=== PATIENT | male | born 1980 ===

== ENCOUNTER 2019-09-08 23:57 | Inpatient (IN) | payer OTHER ==
[2019-09-09] MEDS ORDERED: SODIUM CHLORIDE 0.9% 1000 ML 1,000 ML IV ONE ×4 (00:35→08:54)
--- NOTE | 2019-09-09 00:37 | Emergency Department Report ---
ED General Adult HPI - General Chief complaint: Urogenital-Male Stated complaint: FREQUENT URINATION/DRY MOUTH/BLURRED VISION Time Seen by Provider: 09/09/19 00:32 Source: patient Mode of arrival: Ambulatory Limitations: No Limitations - History of Present Illness Initial comments: Patient is a 39-year-old male that presents to emergency room with complaints of weakness, increased thirst, frequent urination, fatigue and blurry vision. Patient states his symptoms started 2 weeks ago and worsening. Patient states she does not have a history of diabetes however he states that his sugars greater than 500 triage here. Patient states only past medical history of hypertension. Patient is not taking his blood pressure medications. Patient states a long time since he is went to her primary care. She denies chest pain shortness of breath. Patient denies fever and chills. Patient denies headache -: Sudden Consistency: constant Improves with: rest Worsens with: movement Associated Symptoms: malaise, weakness. denies: headaches, loss of appetite, nausea/vomiting, rash, seizure, shortness of breath, syncope Treatments Prior to Arrival: none - Related Data Home Medications Medication Instructions Recorded Confirmed Last Taken Lisinopril/Hydrochlorothiazide 10 - 12.5 mg PO QDAY 09/09/19 09/09/19 Unknown [Zestoretic 10-12.5 mg Tablet] amLODIPine [Norvasc] 10 mg PO DAILY 09/09/19 09/09/19 Unknown Allergies Allergy/AdvReac Type Severity Reaction Status Date / Time No Known Allergies Allergy Verified 09/09/19 02:41 ED Review of Systems ROS: Stated complaint: FREQUENT URINATION/DRY MOUTH/BLURRED VISION Other details as noted in HPI Constitutional: malaise, weakness. denies: chills, fever Eyes: denies: eye pain, eye discharge, vision change ENT: denies: ear pain, throat pain Respiratory: denies: cough, shortness of breath, wheezing Cardiovascular: denies: chest pain, palpitations Endocrine: no symptoms reported, increased thirst, increased urine Gastrointestinal: denies: abdominal pain, nausea, diarrhea Genitourinary: frequency. denies: dysuria Musculoskeletal: denies: back pain, joint swelling, arthralgia Skin: denies: rash, lesions Neurological: denies: headache, weakness, paresthesias Psychiatric: denies: anxiety, depression Hematological/Lymphatic: denies: easy bleeding, easy bruising ED Past Medical Hx - Past Medical History Previous Medical History?: Yes Hx Hypertension: Yes - Surgical History Past Surgical History?: Yes Additional Surgical History: Right eye - Family History Family history: no significant - Social History Smoking Status: Never Smoker Substance Use Type: None - Medications Home Medications: Home Medications Medication Instructions Recorded Confirmed Last Taken Type Lisinopril/Hydrochlorothiazide 10 - 12.5 mg PO QDAY 09/09/19 09/09/19 Unknown History [Zestoretic 10-12.5 mg Tablet] amLODIPine [Norvasc] 10 mg PO DAILY 09/09/19 09/09/19 Unknown History ED Physical Exam - General Limitations: No Limitations General appearance: alert, in no apparent distress - Head Head exam: Present: atraumatic, normocephalic - Eye Eye exam: Present: normal appearance - ENT ENT exam: Present: mucous membranes dry - Neck Neck exam: Present: normal inspection, full ROM. Absent: tenderness, meningismus - Respiratory Respiratory exam: Present: normal lung sounds bilaterally. Absent: respiratory distress, wheezes, rales - Cardiovascular Cardiovascular Exam: Present: regular rate, normal rhythm. Absent: systolic murmur, diastolic murmur, rubs, gallop - GI/Abdominal GI/Abdominal exam: Present: soft, normal bowel sounds. Absent: distended, tenderness, guarding - Rectal Rectal exam: Present: deferred - Extremities Exam Extremities exam: Present: normal inspection - Back Exam Back exam: Present: normal inspection - Neurological Exam Neurological exam: Present: alert, oriented X3 - Psychiatric Psychiatric exam: Present: normal affect, normal mood - Skin Skin exam: Present: warm, dry, intact, normal color. Absent: rash ED Course Vital Signs 09/09/19 09/09/19 09/09/19 00:02 00:35 01:30 Temperature 97.7 F 97.6 F Pulse Rate 109 H 111 H 96 H Respiratory 18 19 16 Rate Blood Pressure 188/123 162/96 Blood Pressure 162/110 [Left] O2 Sat by Pulse 95 95 96 Oximetry 09/09/19 09/09/19 02:00 03:45 Temperature Pulse Rate 99 H 101 H Respiratory 18 24 Rate Blood Pressure 127/78 Blood Pressure 145/99 [Left] O2 Sat by Pulse 96 94 Oximetry - Reevaluation(s) Reevaluation #1: I discussed all results with patient. Discussed plan of care patient. Patient agrees with plan of care and admission. Patient will be admitted to the hospitalist service. 09/09/19 02:15 Reevaluation #2: Patient will be given calcium, insulin for elevated potassium. 09/09/19 02:36 Reevaluation #3: Patiently placed on insulin drip. Hospitalist made aware of sugar level and potassium. 09/09/19 03:02 - Consultations Consultation #1: Hospitalist consulted for admission. Hospitalist to admit patient. 09/09/19 02:15 ED Medical Decision Making - Lab Data Result diagrams: 09/09/19 00:50 09/09/19 04:12 - EKG Data -: EKG Interpreted by Me EKG shows normal: sinus rhythm, axis, intervals, QRS complexes, ST-T waves Rate: tachycardia - Medical Decision Making Patient is a 39-year-old mellitus emergency room with complaints of polyuria polydipsia and blurred vision and fatigue and weakness. Patient's sugar also found to be elevated. Patient's labs done and consistent with acute renal failure and hyponatremia. She given fluids in the ER. Patient given insulin ER. Patient admitted to the hospitalist service. Patient also found to have glucose on his urine. - Differential Diagnosis DKA, HHS, hyperglycemia. Critical Care Time: Yes Critical care time in (mins) excluding proc time.: 35 Critical care attestation.: If time is entered above; I have spent that time in minutes in the direct care of this critically ill patient, excluding procedure time. Critical Care Time: 35 minutes ED Disposition Clinical Impression: Diabetic hyperosmolar non-ketotic state, Hyponatremia, Hyperglycemia, Polyuria, Polydipsia, Hyperkalemia Renal failure Qualifiers: Renal failure chronicity: acute Acute renal failure type: unspecified Qualified Code(s): N17.9 - Acute kidney failure, unspecified Disposition: 09 OP ADMIT IP TO THIS HOSP Is pt being admited?: Yes Does the pt Need Aspirin: No Condition: Critical Time of Disposition: 02:11
[2019-09-09 01:22] LABS: Basophils % (Auto) 0.4 % (0.0-1.8); Eosinophils % (Auto) 0.2 % (0.0-4.3); Lymphocytes # (Auto) 1.1 K/mm3 (1.2-5.4); Lymphocytes % (Auto) 16.2 % (13.4-35.0); Mean Corpuscular HGB Conc 30 % (32-34); Mean Corpuscular Volume 88 fl (84-94); Monocytes # (Auto) 0.7 K/mm3 (0.0-0.8); Monocytes % (Auto) 10.3 % (0.0-7.3); Platelet Count 353 K/mm3 (140-440); Red Blood Count 6.57 M/mm3 (3.65-5.03); Red Cell Distribution Width 16.2 % (13.2-15.2)
[2019-09-09 01:26] LABS: Hematocrit 58.1 % (35.5-45.6); Hemoglobin 17.2 gm/dl (11.8-15.2)
[2019-09-09 01:32] LABS: Bilirubin,Urine NEG (Negative); Blood,Urine NEG (Negative); Color,Urine Colorless (Yellow); RBC,Urine < 1.0 /HPF (0.0-6.0); Urobilinogen,Urine < 2.0 mg/dL (<2.0)
[2019-09-09 01:35] LABS: WBC,Urine < 1.0 /HPF (0.0-6.0)
[2019-09-09 01:40] LABS: Albumin 4.2 g/dL (3.9-5); Calcium 9.9 mg/dL (8.4-10.2)
[2019-09-09] MEDS ORDERED: INSULIN REGULAR, HUMAN 100 UNITS/1 ML IV ONE (02:13)
[2019-09-09] MEDS ORDERED: hydrALAZINE 20 MG/1 ML INJ IV PRN (02:23)
[2019-09-09] MEDS ORDERED: CALCIUM CHLORIDE 1,000 MG/10 ML SDV IVP ONE (02:35)
[2019-09-09] MEDS ORDERED: CALCIUM CHLORIDE 1,000 MG in SODIUM CHLORIDE 0.9% 100 ML IV ONE (02:50)
[2019-09-09] MEDS ORDERED: SODIUM CHLORIDE 0.45% 1000 ML 1,000 ML IV SCH (03:00)
[2019-09-09] MEDS ORDERED: ONDANSETRON 4 MG/2 ML INJ IV PRN (03:11)
[2019-09-09] MEDS ORDERED: ACETAMINOPHEN 325 MG TAB PO PRN (03:11)
--- NOTE | 2019-09-09 03:16 | History and Physical Report ---
History of Present Illness Date of examination: 09/09/19 History of present illness: 39-year-old man with a history of hypertension, "borderline kidney problems" comes emergency room with complaints frequent urination, decreased appetite, drinking alot, generalized weakness, dry mouth, blurred vision for two weeks. Admits to weight loss of 15 pounds, unclear off timeframe Review of systems Constitutional: no weight loss, chills, fever Ears, eyes, nose, mouth and throat: no nasal congestion, no nasal discharge, no sinus pressure, no vision change, no red eye. Neck: No neck pain or rigidity. Cardiovascular: no chest pain, palpitations Respiratory: no cough, shortness of breath Gastrointestinal: no abdominal pain hematochezia Genitourinary : no frequency , no hematuria Musculoskeletal: no joint swelling or muscle ache Integumentary: no rash, no pruritis Neurological: no parathesias, no numbness, no focal weakness Endocrine: no cold or heat intolerance Hematologic/Lymphatic: no easy bruising, no easy bleeding, no gland swelling Allergic/Immunologic: no urticaria, no angioedema. PAST MEDICAL HISTORY: hypertension, "borderline kidney problems" PAST SURGICAL HISTORY: None SOCIAL HISTORY: No drugs, tobacco, social alcohol FAMILY HISTORY: Hypertension Medications and Allergies Allergies Allergy/AdvReac Type Severity Reaction Status Date / Time No Known Allergies Allergy Verified 09/09/19 02:41 Home Medications Medication Instructions Recorded Confirmed Last Taken Type Lisinopril/Hydrochlorothiazide 10 - 12.5 mg PO QDAY 09/09/19 09/09/19 Unknown History [Zestoretic 10-12.5 mg Tablet] amLODIPine [Norvasc] 10 mg PO DAILY 09/09/19 09/09/19 Unknown History Active Meds: Active Medications Acetaminophen (Tylenol) 650 mg PO Q4H PRN PRN Reason: Pain MILD(1-3)/Fever >100.5/ALBRIGHT Amlodipine Besylate (Amlodipine) 10 mg PO DAILY AMY Enoxaparin Sodium (Enoxaparin) 40 mg SUB-Q QDAY@1000 AMY Hydralazine HCl (Apresoline) 5 mg IV Q6H PRN PRN Reason: Hypertension Sodium Chloride (Nacl 0.45% 1000 Ml) 1,000 mls @ 125 mls/hr IV DIRECT AMY Insulin Human Regular 100 (units/ Sodium Chloride) 100 mls @ 1 mls/hr IV TITR AMY; Protocol Sodium Chloride (Nacl 0.9% 1000 Ml) 1,000 mls @ 999 mls/hr IV BOLUS ONE Stop: 09/09/19 04:10 Dextrose/Sodium Chloride (D5/0.45ns) 1,000 mls @ 150 mls/hr IV DIRECT AMY Ondansetron HCl (Zofran) 4 mg IV Q8H PRN PRN Reason: Nausea And Vomiting Sodium Chloride (Sodium Chloride Flush Syringe 10 Ml) 10 ml IV BID AMY Sodium Chloride (Sodium Chloride Flush Syringe 10 Ml) 10 ml IV PRN PRN PRN Reason: LINE FLUSH Exam - Physical Exam Narrative exam: Gen. appearance: Patient lying in bed, no apparent distress HEENT: Normocephalic, atraumatic, pupils equally round and reactive to light, extraocular movement intact, and no sclericterus,. No JVD or thyromegaly or nodule,neck supple, no carotid bruit ,mucous membranes dry, no exudate or erythema Heart: S1, S2, regular rate and rhythm Lungs: Clear bilaterally, breathing comfortable Abdomen: Positive bowel sounds, non-tender, nondistended, no organomegaly Extremity:no edema cyanosis, clubbing Skin: no rash, dry, warm Neuro: Oriented 3, cranial nerves II-12 intact, speech is fluent, motor and sensory intact - Constitutional Vitals: Temp Pulse Resp BP Pulse Ox 97.6 F 111 H 19 162/110 95 09/09/19 00:35 09/09/19 00:35 09/09/19 00:35 09/09/19 00:35 09/09/19 00:35 Results - Labs CBC & Chem 7: 09/09/19 00:50 09/09/19 00:50 Labs: Abnormal lab results 09/09/19 09/09/19 09/09/19 Range/Units 00:14 00:50 00:50 RBC 6.57 H (3.65-5.03) M/mm3 Hgb 17.2 H (11.8-15.2) gm/dl Hct 58.1 H (35.5-45.6) % MCH 26 L (28-32) pg MCHC 30 L (32-34) % RDW 16.2 H (13.2-15.2) % [place] % (Auto) 10.3 H (0.0-7.3) % Lymph # 1.1 L (1.2-5.4) K/mm3 Seg Neutrophils % 72.9 H (40.0-70.0) % Sodium 121 L (137-145) mmol/L Potassium 6.5 H* (3.6-5.0) mmol/L Chloride 78.6 L (98-107) mmol/L BUN 34 H (9-20) mg/dL Creatinine 2.4 H (0.8-1.5) mg/dL Glucose 1601 H* (75-100) mg/dL POC Glucose > 500 H (70-105) Alkaline Phosphatase 169 H (35-129) units/L Total Protein 8.3 H (6.3-8.2) g/dL Assessment and Plan Assessment HONK Renal failure Dehydration Hyperkalemia Hypertension uncontrolled Pseudohyponatremia Metabolic Acidosis Plan Admit to medicine Start DKA protocol with IV fluid, insulin drip Monitor serial chemistry, check HAIc DVT prophalaxis, check ultrasound of kidneys . Hold nephrotoxic agents, lisinopril, hydrochlorothiazide IV hydralazine as needed for blood pressure control Consult critical care
[2019-09-09] MEDS ORDERED: SODIUM CHLORIDE 0.9% 1000 ML 1,000 ML ONE (03:33)
[2019-09-09] MEDS ORDERED: D5W/0.45% NACL 1,000 ML IV SCH (04:00)
[2019-09-09] MEDS ORDERED: INSULIN REGULAR, HUMAN 100 UNITS in SODIUM CHLORIDE 0.9% 99 ML IV SCH (04:00)
[2019-09-09 05:11] LABS: Calcium 10.3 mg/dL (8.4-10.2)
--- NOTE | 2019-09-09 05:14 | Ultrasound Report ---
EXAMINATION: Bilateral renal ultrasound, 09/09/2019 CLINICAL INFORMATION: Acute renal failure COMPARISON: None. FINDINGS: Both kidneys appear normal in size and echogenicity. The right kidney measures 12.2 cm. The left kidn ey measures 10.9 cm. There is no evidence of renal mass or hydronephrosis. The urinary bladder appears normal. IMPRESSION: 1. No sonographic abnormality of either kidney. Signer Name: Catherine Mari MD Signed: 09/09/2019 5:10 AM Workstation Name: [employer]
[2019-09-09 08:44] LABS: Calcium 10.7 mg/dL (8.4-10.2)
--- NOTE | 2019-09-09 08:56 | Progress Note ---
Assessment and Plan Assessment and plan: --HONK: Rigorous IV hydration, normal saline bolus Continue insulin drip, clear liquid diet Supportive care HbA1c 12.3 Case management assist at discharge --Acute Renal failure; vasomotor nephropathy, Secondary to severe dehydration Rigorous IV hydration, avoid nephrotoxins Nephrology evaluation if needed --New-onset diabetes mellitus; hyperosmolar nonketotic state On insulin drip, once blood sugars reasonable level, DC insulin drip Start long-acting 7030 insulin, diabetic education, nutrition education --Severe Dehydration; secondary to hyperglycemia IV hydration, monitor input output --Hyperkalemia; Kayexalate, monitor electrolytes --Accelerated Hypertension: Continue current antihypertensives, when necessary medications --Pseudohyponatremia; due to hyperglycemia Improving, monitor electrolytes --Hypercalcemia; secondary to severe dehydration gentle dehydration, Continue IV fluids --Obesity; BMI 36.1 Patient minutes weight reduction when medically stable --DVT prophylaxis; Heparin renal dose Monitor closely and adjust management as needed Plan of care reviewed with the patient his nurse Critical care time 45 minutes History Interval history: Patient Seen and examined medical records reviewed Admitted with hyperosmolar nonketotic state, on insulin. Severely dehydrated Patient Requests for food Vital signs noted Hospitalist Physical - Constitutional Vitals: Temp Pulse Resp BP Pulse Ox 97.6 F 104 H 28 H 145/99 97 09/09/19 00:35 09/09/19 05:02 09/09/19 05:00 09/09/19 03:45 09/09/19 05:00 General appearance: Present: mild distress, well-nourished, obese - EENT Eyes: Present: PERRL, EOM intact - Neck Neck: Present: supple, normal ROM - Respiratory Respiratory effort: normal Respiratory: bilateral: diminished, negative: rales, rhonchi, wheezing - Cardiovascular Rhythm: regular Heart Sounds: Present: S1 & S2 - Extremities Extremities: no ischemia, No edema - Abdominal General gastrointestinal: soft, non-tender, non-distended, normal bowel sounds - Integumentary Integumentary: Present: clear, warm - Psychiatric Psychiatric: appropriate mood/affect, cooperative - Neurologic Neurologic: CNII-XII intact, moves all extremities Results - Labs CBC & Chem 7: 09/09/19 00:50 09/09/19 13:12 Labs: Laboratory Last Values WBC 6.8 K/mm3 (4.5-11.0) 09/09/19 00:50 RBC 6.57 M/mm3 (3.65-5.03) H 09/09/19 00:50 Hgb 17.2 gm/dl (11.8-15.2) H 09/09/19 00:50 Hct 58.1 % (35.5-45.6) H 09/09/19 00:50 MCV 88 fl (84-94) 09/09/19 00:50 MCH 26 pg (28-32) L 09/09/19 00:50 MCHC 30 % (32-34) L 09/09/19 00:50 RDW 16.2 % (13.2-15.2) H 09/09/19 00:50 Plt Count 353 K/mm3 (140-440) 09/09/19 00:50 Lymph % (Auto) 16.2 % (13.4-35.0) 09/09/19 00:50 [place] % (Auto) 10.3 % (0.0-7.3) H 09/09/19 00:50 Eos % (Auto) 0.2 % (0.0-4.3) 09/09/19 00:50 Baso % (Auto) 0.4 % (0.0-1.8) 09/09/19 00:50 Lymph # 1.1 K/mm3 (1.2-5.4) L 09/09/19 00:50 [place] # 0.7 K/mm3 (0.0-0.8) 09/09/19 00:50 Eos # 0.0 K/mm3 (0.0-0.4) 09/09/19 00:50 Baso # 0.0 K/mm3 (0.0-0.1) 09/09/19 00:50 Seg Neutrophils % 72.9 % (40.0-70.0) H 09/09/19 00:50 Seg Neutrophils # 4.9 K/mm3 (1.8-7.7) 09/09/19 00:50 VBG pH 7.353 (7.320-7.420) 09/09/19 00:50 Sodium 139 mmol/L (137-145) 09/09/19 07:45 Potassium 5.3 mmol/L (3.6-5.0) H 09/09/19 07:45 Chloride 101.9 mmol/L (98-107) 09/09/19 07:45 Carbon Dioxide 18 mmol/L (22-30) L 09/09/19 07:45 Anion Gap 24 mmol/L 09/09/19 07:45 BUN 31 mg/dL (9-20) H 09/09/19 07:45 Creatinine 1.9 mg/dL (0.8-1.5) H 09/09/19 07:45 Estimated GFR 40 ml/min 09/09/19 07:45 BUN/Creatinine Ratio 16 % 09/09/19 07:45 Glucose 667 mg/dL (75-100) H* 09/09/19 07:45 POC Glucose > 500 (70-105) H 09/09/19 06:55 Hemoglobin A1c 12.3 % (4-6) H 09/09/19 04:12 Calcium 10.7 mg/dL (8.4-10.2) H 09/09/19 07:45 Phosphorus 2.50 mg/dL (2.5-4.5) 09/09/19 04:12 Magnesium 2.90 mg/dL (1.7-2.3) H 09/09/19 04:12 Total Bilirubin 0.30 mg/dL (0.1-1.2) 09/09/19 00:50 AST 10 units/L (5-40) 09/09/19 00:50 ALT 27 units/L (7-56) 09/09/19 00:50 Alkaline Phosphatase 169 units/L (35-129) H 09/09/19 00:50 Total Protein 8.3 g/dL (6.3-8.2) H 09/09/19 00:50 Albumin 4.2 g/dL (3.9-5) 09/09/19 00:50 Albumin/Globulin Ratio 1.0 % 09/09/19 00:50 Urine Color Colorless (Yellow) 09/09/19 Unknown Urine Turbidity Clear (Clear) 09/09/19 Unknown Urine pH 6.0 (5.0-7.0) 09/09/19 Unknown Ur Specific Notus 1.022 (1.003-1.030) 09/09/19 Unknown Urine Protein 30 mg/dl mg/dL (Negative) 09/09/19 Unknown Urine Glucose (UA) >=500 mg/dL (Negative) 09/09/19 Unknown Urine Ketones Neg mg/dL (Negative) 09/09/19 Unknown Urine Blood Neg (Negative) 09/09/19 Unknown Urine Nitrite Neg (Negative) 09/09/19 Unknown Urine Bilirubin Neg (Negative) 09/09/19 Unknown Urine Urobilinogen < 2.0 mg/dL (<2.0) 09/09/19 Unknown Ur Leukocyte Esterase Neg (Negative) 09/09/19 Unknown Urine WBC (Auto) < 1.0 /HPF (0.0-6.0) 09/09/19 Unknown Urine RBC (Auto) < 1.0 /HPF (0.0-6.0) 09/09/19 Unknown Active Medications - Current Medications Current Medications: Generic Name Dose Route Start Last Admin Trade Name Freq PRN Reason Stop Dose Admin Acetaminophen 650 mg 09/09/19 03:11 Tylenol PO Q4H PRN Pain MILD(1-3)/Fever >100.5/ALBRIGHT Amlodipine Besylate 10 mg 09/09/19 10:00 Amlodipine PO DAILY [facility] Enoxaparin Sodium 40 mg 09/09/19 10:00 Enoxaparin SUB-Q QDAY@1000 AMY Hydralazine HCl 5 mg 09/09/19 02:23 Apresoline IV Q6H PRN Hypertension Sodium Chloride 1,000 mls @ 125 mls/hr 09/09/19 03:00 Nacl 0.45% 1000 Ml IV DIRECT AMY Insulin Human Regular 100 100 mls @ 1 mls/hr 09/09/19 04:00 09/09/19 06:40 units/ Sodium Chloride IV 8 units/hr TITR AMY 8 mls/hr Titration Protocol 1 UNITS/HR Dextrose/Sodium Chloride 1,000 mls @ 150 mls/hr 09/09/19 04:00 D5/0.45ns IV DIRECT AMY Ondansetron HCl 4 mg 09/09/19 03:11 Zofran IV Q8H PRN Nausea And Vomiting Sodium Chloride 10 ml 09/09/19 10:00 Sodium Chloride Flush Syringe 10 Ml IV BID AMY Sodium Chloride 10 ml 09/09/19 03:11 Sodium Chloride Flush Syringe 10 Ml IV PRN PRN LINE FLUSH
--- NOTE | 2019-09-09 08:58 | Consultation ---
History of Present Illness - Reason for Consult Consult date: 09/09/19 DKA Requesting physician: KATIE YI - History of Present Illness 39 y/o male admitted with DKA. Still, anion gap remains elevated. Most recent blood sugar is 667. Past History Past Medical History: hypertension Medications and Allergies Allergies Allergy/AdvReac Type Severity Reaction Status Date / Time No Known Allergies Allergy Verified 09/09/19 02:41 Home Medications Medication Instructions Recorded Confirmed Last Taken Type Lisinopril/Hydrochlorothiazide 10 - 12.5 mg PO QDAY 09/09/19 09/09/19 Unknown History [Zestoretic 10-12.5 mg Tablet] amLODIPine [Norvasc] 10 mg PO DAILY 09/09/19 09/09/19 Unknown History Active Meds: Active Medications Acetaminophen (Tylenol) 650 mg PO Q4H PRN PRN Reason: Pain MILD(1-3)/Fever >100.5/ALBRIGHT Amlodipine Besylate (Amlodipine) 10 mg PO DAILY AMY Enoxaparin Sodium (Enoxaparin) 40 mg SUB-Q QDAY@1000 AMY Hydralazine HCl (Apresoline) 5 mg IV Q6H PRN PRN Reason: Hypertension Sodium Chloride (Nacl 0.45% 1000 Ml) 1,000 mls @ 125 mls/hr IV DIRECT AMY Insulin Human Regular 100 (units/ Sodium Chloride) 100 mls @ 1 mls/hr IV TITR AMY; Protocol Last Titration: 09/09/19 06:40 Dose: 8 units/hr, 8 mls/hr Documented by: Dextrose/Sodium Chloride (D5/0.45ns) 1,000 mls @ 150 mls/hr IV DIRECT AMY Ondansetron HCl (Zofran) 4 mg IV Q8H PRN PRN Reason: Nausea And Vomiting Sodium Chloride (Sodium Chloride Flush Syringe 10 Ml) 10 ml IV BID AMY Sodium Chloride (Sodium Chloride Flush Syringe 10 Ml) 10 ml IV PRN PRN PRN Reason: LINE FLUSH Review of Systems All systems: negative Exam - Constitutional Vitals: Temp Pulse Resp BP Pulse Ox 97.6 F 104 H 28 H 145/99 97 09/09/19 00:35 09/09/19 05:02 09/09/19 05:00 09/09/19 03:45 09/09/19 05:00 General appearance: Present: no acute distress, obese - EENT Eyes: Present: PERRL, EOM intact ENT: hearing intact - Neck Neck: Present: supple, normal ROM - Respiratory Respiratory effort: normal Respiratory: bilateral: CTA - Cardiovascular Rhythm: regular Heart Sounds: Present: S1 & S2 - Extremities Extremities: no ischemia, pulses intact - Abdominal General gastrointestinal: Present: soft, non-distended, normal bowel sounds Male genitourinary: Present: deferred - Rectal Rectal Exam: deferred - Integumentary Integumentary: Present: clear, warm, dry - Musculoskeletal Musculoskeletal: strength equal bilaterally - Psychiatric Psychiatric: appropriate mood/affect - Neurologic Neurologic: CNII-XII intact Results - Labs CBC & Chem 7: 09/09/19 00:50 09/09/19 07:45 Labs: Abnormal lab results 09/09/19 09/09/19 09/09/19 Range/Units 00:14 00:50 00:50 RBC 6.57 H (3.65-5.03) M/mm3 Hgb 17.2 H (11.8-15.2) gm/dl Hct 58.1 H (35.5-45.6) % MCH 26 L (28-32) pg MCHC 30 L (32-34) % RDW 16.2 H (13.2-15.2) % [place] % (Auto) 10.3 H (0.0-7.3) % Lymph # 1.1 L (1.2-5.4) K/mm3 Seg Neutrophils % 72.9 H (40.0-70.0) % Sodium 121 L (137-145) mmol/L Potassium 6.5 H* (3.6-5.0) mmol/L Chloride 78.6 L (98-107) mmol/L Carbon Dioxide (22-30) mmol/L BUN 34 H (9-20) mg/dL Creatinine 2.4 H (0.8-1.5) mg/dL Glucose 1601 H* (75-100) mg/dL POC Glucose > 500 H (70-105) Hemoglobin A1c (4-6) % Calcium (8.4-10.2) mg/dL Magnesium (1.7-2.3) mg/dL Alkaline Phosphatase 169 H (35-129) units/L Total Protein 8.3 H (6.3-8.2) g/dL 09/09/19 09/09/19 09/09/19 Range/Units 03:27 04:12 04:12 RBC (3.65-5.03) M/mm3 Hgb (11.8-15.2) gm/dl Hct (35.5-45.6) % MCH (28-32) pg MCHC (32-34) % RDW (13.2-15.2) % [place] % (Auto) (0.0-7.3) % Lymph # (1.2-5.4) K/mm3 Seg Neutrophils % (40.0-70.0) % Sodium (137-145) mmol/L Potassium (3.6-5.0) mmol/L Chloride (98-107) mmol/L Carbon Dioxide (22-30) mmol/L BUN 32 H (9-20) mg/dL Creatinine 2.3 H (0.8-1.5) mg/dL Glucose 994 H* (75-100) mg/dL POC Glucose > 500 H (70-105) Hemoglobin A1c (4-6) % Calcium 10.3 H (8.4-10.2) mg/dL Magnesium 2.90 H (1.7-2.3) mg/dL Alkaline Phosphatase (35-129) units/L Total Protein (6.3-8.2) g/dL 09/09/19 09/09/19 09/09/19 Range/Units 04:12 06:55 07:45 RBC (3.65-5.03) M/mm3 Hgb (11.8-15.2) gm/dl Hct (35.5-45.6) % MCH (28-32) pg MCHC (32-34) % RDW (13.2-15.2) % [place] % (Auto) (0.0-7.3) % Lymph # (1.2-5.4) K/mm3 Seg Neutrophils % (40.0-70.0) % Sodium (137-145) mmol/L Potassium 5.3 H (3.6-5.0) mmol/L Chloride (98-107) mmol/L Carbon Dioxide 18 L (22-30) mmol/L BUN 31 H (9-20) mg/dL Creatinine 1.9 H (0.8-1.5) mg/dL Glucose 667 H* (75-100) mg/dL POC Glucose > 500 H (70-105) Hemoglobin A1c 12.3 H (4-6) % Calcium 10.7 H (8.4-10.2) mg/dL Magnesium (1.7-2.3) mg/dL Alkaline Phosphatase (35-129) units/L Total Protein (6.3-8.2) g/dL Assessment and Plan 39 y/o male with new onset diabetes, HTN, admitted with DKA. 1. Continue insulin drip until anion GAP closes 2. Resume home BP regimen 3. NPO until GaP closes 4. Discussed with patient at bedside. CCT 31 min
[2019-09-09] MEDS ORDERED: SODIUM POLYSTYRENE 15 GM/60 ML ORAL LIQD PO ONE (09:02)
[2019-09-09] MEDS ORDERED: ENOXAPARIN 30 MG/0.3 ML INJ SUB-Q SCH (10:00)
[2019-09-09] MEDS: ENOXAPARIN 40 MG/0.4 ML INJ SUB-Q SCH (10:07)
[2019-09-09] MEDS: amLODIPine 10 MG TAB PO SCH (10:07)
[2019-09-09 10:55] LABS: Calcium 10.9 mg/dL (8.4-10.2)
[2019-09-09 13:46] LABS: Calcium 9.9 mg/dL (8.4-10.2)
[2019-09-09] MEDS ORDERED: INSULIN NPH/REGULAR 70/30 INJ SUB-Q SCH (17:00)
[2019-09-09] MEDS: INSULIN NPH/REGULAR 70/30 INJ SUB-Q SCH (17:05)
[2019-09-09 17:48] LABS: Calcium 9.8 mg/dL (8.4-10.2)
[2019-09-09 21:10] LABS: Calcium 8.8 mg/dL (8.4-10.2)
[2019-09-09] MEDS: INSULIN LISPRO 100 UNIT/ML SUB-Q SCH (21:29)
[2019-09-10] MEDS: INSULIN LISPRO 100 UNIT/ML SUB-Q SCH ×4 (08:15→22:04)
[2019-09-10] MEDS: INSULIN NPH/REGULAR 70/30 INJ SUB-Q SCH ×2 (09:16→18:48)
[2019-09-10] MEDS: amLODIPine 10 MG TAB PO SCH (09:19)
[2019-09-10] MEDS: ENOXAPARIN 40 MG/0.4 ML INJ SUB-Q SCH (09:21)
[2019-09-10 09:30] LABS: Alanine Aminotransferase 25 units/L (7-56); Albumin 3.6 g/dL (3.9-5); BUN/Creatinine Ratio 11; Bilirubin,Direct < 0.2 mg/dL (0-0.2); Blood Urea Nitrogen 18 mg/dL (9-20); Calcium 9.2 mg/dL (8.4-10.2); Hemolysis Index 41
[2019-09-10] MEDS ORDERED: INSULIN NPH/REGULAR 70/30 INJ SUB-Q ONE (10:00)
--- NOTE | 2019-09-10 16:31 | Progress Note ---
Assessment and Plan Imp: 1. Diabetic hyper-osmolar non-ketotic state 2. Volume depletion 3. Polycythemia 2/2 #2 4. YUNG 5. Hyperkalemia 6. Obesity Rec: 1. Optimize insulin regimen and anti-hypertensive regimen -> defer to primary 2. Repeat labs in AM 3. Consider JASMINE eval., jack. if polycythemia is persistent 4. Off insulin drip so can leave ICU Plan of care reviewed w/ patient, he understands/agrees Subjective Date of service: 09/10/19 Principal diagnosis: HONK Interval history: No events. On RA. No complaints. Active Medications Acetaminophen (Tylenol) 650 mg PO Q4H PRN PRN Reason: Pain MILD(1-3)/Fever >100.5/ALBRIGHT Amlodipine Besylate (Amlodipine) 10 mg PO DAILY [facility] Last Admin: 09/10/19 09:19 Dose: 10 mg Documented by: Enoxaparin Sodium (Enoxaparin) 40 mg SUB-Q QDAY@1000 [facility] Last Admin: 09/10/19 09:21 Dose: 40 mg Documented by: Hydralazine HCl (Apresoline) 5 mg IV Q6H PRN PRN Reason: Hypertension Insulin Human Isoph/Insulin Regular (Humulin 70/30) 30 unit SUB-Q BIDDIAB [facility] Insulin Human Lispro (Humalog) 0 unit SUB-Q ACHS [facility]; Protocol Last Admin: 09/10/19 12:31 Dose: 10 unit Documented by: Ondansetron HCl (Zofran) 4 mg IV Q8H PRN PRN Reason: Nausea And Vomiting Sodium Chloride (Sodium Chloride Flush Syringe 10 Ml) 10 ml IV BID [facility] Last Admin: 09/10/19 12:29 Dose: 10 ml Documented by: Sodium Chloride (Sodium Chloride Flush Syringe 10 Ml) 10 ml IV PRN PRN PRN Reason: LINE FLUSH Objective Vital Signs - 12hr 09/10/19 09/10/19 09/10/19 04:30 05:00 05:07 Temperature Pulse Rate 78 84 84 Respiratory 15 21 Rate Blood Pressure 140/93 157/100 O2 Sat by Pulse 93 94 Oximetry 09/10/19 09/10/19 09/10/19 05:30 06:00 06:30 Temperature Pulse Rate 81 86 83 Respiratory 20 22 21 Rate Blood Pressure 144/95 148/97 138/96 O2 Sat by Pulse 94 93 97 Oximetry 09/10/19 09/10/19 09/10/19 07:00 07:30 08:00 Temperature 97.9 F Pulse Rate 87 92 H 90 Respiratory 25 H 29 H 28 H Rate Blood Pressure 143/100 153/98 154/114 O2 Sat by Pulse 98 95 100 Oximetry 09/10/19 09/10/19 09:19 12:00 Temperature 97.4 F L Pulse Rate 99 H Respiratory Rate Blood Pressure 177/125 O2 Sat by Pulse Oximetry Constitutional: no acute distress, alert, other (obese) Eyes: non-icteric ENT: oropharynx moist Neck: supple Effort: normal Cardiovascular: regular rate and rhythm Gastrointestinal: normoactive bowel sounds, soft, non-tender, non-distended Integumentary: normal Extremities: no cyanosis, no edema, pink and warm Neurologic: normal mental status, non-focal exam, pupils equal and round, CN II- XII normal Psychiatric: mood appropriate, affect normal CBC and BMP: 09/09/19 00:50 09/10/19 08:15 Abnormal lab findings: Abnormal Labs 09/09/19 09/09/19 09/09/19 00:14 00:50 00:50 RBC 6.57 H Hgb 17.2 H Hct 58.1 H MCH 26 L MCHC 30 L RDW 16.2 H Bremer % (Auto) 10.3 H Lymph # 1.1 L Seg Neutrophils % 72.9 H Sodium 121 L Potassium 6.5 H* Chloride 78.6 L Carbon Dioxide BUN 34 H Creatinine 2.4 H Glucose 1601 H* POC Glucose > 500 H Hemoglobin A1c Calcium Magnesium Alkaline Phosphatase 169 H Total Protein 8.3 H Albumin 09/09/19 09/09/19 09/09/19 03:27 04:12 04:12 RBC Hgb Hct MCH MCHC RDW [place] % (Auto) Lymph # Seg Neutrophils % Sodium Potassium Chloride Carbon Dioxide BUN 32 H Creatinine 2.3 H Glucose 994 H* POC Glucose > 500 H Hemoglobin A1c Calcium 10.3 H Magnesium 2.90 H Alkaline Phosphatase Total Protein Albumin 09/09/19 09/09/19 09/09/19 04:12 05:25 06:55 RBC Hgb Hct MCH MCHC RDW [place] % (Auto) Lymph # Seg Neutrophils % Sodium Potassium Chloride Carbon Dioxide BUN Creatinine Glucose POC Glucose > 500 H > 500 H Hemoglobin A1c 12.3 H Calcium Magnesium Alkaline Phosphatase Total Protein Albumin 09/09/19 09/09/19 09/09/19 07:45 09:30 10:25 RBC Hgb Hct MCH MCHC RDW [place] % (Auto) Lymph # Seg Neutrophils % Sodium Potassium 5.3 H 5.4 H Chloride Carbon Dioxide 18 L 20 L BUN 31 H 30 H Creatinine 1.9 H 2.0 H Glucose 667 H* 646 H* POC Glucose > 500 H Hemoglobin A1c Calcium 10.7 H 10.9 H Magnesium Alkaline Phosphatase Total Protein Albumin 09/09/19 09/09/19 09/09/19 12:17 13:12 13:26 RBC Hgb Hct MCH MCHC RDW [place] % (Auto) Lymph # Seg Neutrophils % Sodium Potassium Chloride Carbon Dioxide 19 L BUN 26 H Creatinine 2.0 H Glucose 491 H POC Glucose 391 H 384 H Hemoglobin A1c Calcium Magnesium Alkaline Phosphatase Total Protein Albumin 09/09/19 09/09/19 09/09/19 14:50 15:57 16:51 RBC Hgb Hct MCH MCHC RDW [place] % (Auto) Lymph # Seg Neutrophils % Sodium Potassium Chloride Carbon Dioxide BUN 23 H Creatinine 1.8 H Glucose 317 H POC Glucose 361 H 308 H Hemoglobin A1c Calcium Magnesium Alkaline Phosphatase Total Protein Albumin 09/09/19 09/09/19 09/09/19 17:56 20:17 21:23 RBC Hgb Hct MCH MCHC RDW [place] % (Auto) Lymph # Seg Neutrophils % Sodium Potassium Chloride Carbon Dioxide BUN 22 H Creatinine 1.8 H Glucose 535 H* POC Glucose 248 H 444 H Hemoglobin A1c Calcium Magnesium Alkaline Phosphatase Total Protein Albumin 09/10/19 09/10/19 09/10/19 08:15 08:31 09:21 RBC Hgb Hct MCH MCHC RDW [place] % (Auto) Lymph # Seg Neutrophils % Sodium Potassium Chloride Carbon Dioxide 21 L BUN Creatinine 1.7 H Glucose 423 H POC Glucose 338 H 430 H Hemoglobin A1c Calcium Magnesium Alkaline Phosphatase Total Protein Albumin 3.6 L 09/10/19 12:30 RBC Hgb Hct MCH MCHC RDW Bre[place] % (Auto) Lymph # Seg Neutrophils % Sodium Potassium Chloride Carbon Dioxide BUN Creatinine Glucose POC Glucose 403 H Hemoglobin A1c Calcium Magnesium Alkaline Phosphatase Total Protein Albumin
--- NOTE | 2019-09-10 16:53 | Progress Note ---
Assessment and Plan Assessment and plan: --HONK: Resolved Rigorous IV hydration, normal saline bolus s/p insulin drip, ADA diet Supportive care HbA1c 12.3 Case management assist at discharge --New-onset type 2 diabetes mellitus; Uncontrolled, Accu-Chek sliding scale coverage ADA diet Increase to 7030 Novolin to 30 units twice a day Diabetic education, nutrition education --Acute Renal failure; vasomotor nephropathy, Secondary to severe dehydration Continue IV hydration, avoid nephrotoxins Trending down --Severe Dehydration; secondary to hyperglycemia IV hydration, mechanically improve --Hyperkalemia; resolved --Accelerated Hypertension: Moderate control Continue current antihypertensives, when necessary medications --Pseudohyponatremia; resolved --Hypercalcemia; secondary to severe dehydration gentle dehydration, Continue IV fluids --Obesity; BMI 36.1 --HONK: Rigorous IV hydration, normal saline bolus Continue insulin drip, clear liquid diet Supportive care HbA1c 12.3 Case management assist at discharge --Acute Renal failure; vasomotor nephropathy, Secondary to severe dehydration Rigorous IV hydration, avoid nephrotoxins Nephrology evaluation if needed --New-onset diabetes mellitus; hyperosmolar nonketotic state On insulin drip, once blood sugars reasonable level, DC insulin drip Start long-acting 7030 insulin, diabetic education, nutrition education --Severe Dehydration; secondary to hyperglycemia IV hydration, monitor input output --Hyperkalemia; Kayexalate, monitor electrolytes --Accelerated Hypertension: Continue current antihypertensives, when necessary medications --Pseudohyponatremia; due to hyperglycemia Improving, monitor electrolytes --Hypercalcemia; secondary to severe dehydration gentle dehydration, Continue IV fluids --Obesity; BMI 36.1 Advised weight reduction when medically stable --DVT prophylaxis; Heparin renal dose Monitor closely and adjust management as needed Plan of care reviewed with the patient his nurse Stable to transfer out of ICU to medical floor Possible discharge in 1-2 days if stable Critical care time 32 minutes History Interval history: Sincerely and examined medical records reviewed Patient feels slightly better blood sugars still uncontrolled Tolerating oral nutrition No new complaints Vital signs noted Hospitalist Physical - Constitutional Vitals: Temp Pulse Resp BP Pulse Ox 97.7 F 99 H 28 H 177/125 100 09/10/19 16:30 09/10/19 09:19 09/10/19 08:00 09/10/19 09:19 09/10/19 08:00 General appearance: Present: mild distress, well-nourished, obese - EENT Eyes: Present: PERRL, EOM intact - Neck Neck: Present: supple, normal ROM - Respiratory Respiratory effort: normal Respiratory: bilateral: diminished, negative: rales, rhonchi, wheezing - Cardiovascular Rhythm: regular Heart Sounds: Present: S1 & S2 - Extremities Extremities: no ischemia, No edema - Abdominal General gastrointestinal: soft, non-tender, non-distended, normal bowel sounds - Integumentary Integumentary: Present: clear, warm - Psychiatric Psychiatric: appropriate mood/affect, cooperative - Neurologic Neurologic: CNII-XII intact, moves all extremities Results - Labs CBC & Chem 7: 09/09/19 00:50 09/10/19 08:15 Labs: Laboratory Last Values WBC 6.8 K/mm3 (4.5-11.0) 09/09/19 00:50 RBC 6.57 M/mm3 (3.65-5.03) H 09/09/19 00:50 Hgb 17.2 gm/dl (11.8-15.2) H 09/09/19 00:50 Hct 58.1 % (35.5-45.6) H 09/09/19 00:50 MCV 88 fl (84-94) 09/09/19 00:50 MCH 26 pg (28-32) L 09/09/19 00:50 MCHC 30 % (32-34) L 09/09/19 00:50 RDW 16.2 % (13.2-15.2) H 09/09/19 00:50 Plt Count 353 K/mm3 (140-440) 09/09/19 00:50 Lymph % (Auto) 16.2 % (13.4-35.0) 09/09/19 00:50 [place]rill % (Auto) 10.3 % (0.0-7.3) H 09/09/19 00:50 Eos % (Auto) 0.2 % (0.0-4.3) 09/09/19 00:50 Baso % (Auto) 0.4 % (0.0-1.8) 09/09/19 00:50 Lymph # 1.1 K/mm3 (1.2-5.4) L 09/09/19 00:50 [place]rill # 0.7 K/mm3 (0.0-0.8) 09/09/19 00:50 Eos # 0.0 K/mm3 (0.0-0.4) 09/09/19 00:50 Baso # 0.0 K/mm3 (0.0-0.1) 09/09/19 00:50 Seg Neutrophils % 72.9 % (40.0-70.0) H 09/09/19 00:50 Seg Neutrophils # 4.9 K/mm3 (1.8-7.7) 09/09/19 00:50 VBG pH 7.353 (7.320-7.420) 09/09/19 00:50 Sodium 142 mmol/L (137-145) 09/10/19 08:15 Potassium 4.8 mmol/L (3.6-5.0) 09/10/19 08:15 Chloride 103.6 mmol/L (98-107) 09/10/19 08:15 Carbon Dioxide 21 mmol/L (22-30) L 09/10/19 08:15 Anion Gap 22 mmol/L 09/10/19 08:15 BUN 18 mg/dL (9-20) 09/10/19 08:15 Creatinine 1.7 mg/dL (0.8-1.5) H 09/10/19 08:15 Estimated GFR 45 ml/min 09/10/19 08:15 BUN/Creatinine Ratio 11 % 09/10/19 08:15 Glucose 423 mg/dL (75-100) H 09/10/19 08:15 POC Glucose 403 (70-105) H 09/10/19 12:30 Hemoglobin A1c 12.3 % (4-6) H 09/09/19 04:12 Calcium 9.2 mg/dL (8.4-10.2) 09/10/19 08:15 Phosphorus 3.80 mg/dL (2.5-4.5) D 09/10/19 08:15 Magnesium 2.10 mg/dL (1.7-2.3) 09/10/19 08:15 Total Bilirubin 0.50 mg/dL (0.1-1.2) 09/10/19 08:15 Direct Bilirubin < 0.2 mg/dL (0-0.2) 09/10/19 08:15 Indirect Bilirubin 0.3 mg/dL 09/10/19 08:15 AST 30 units/L (5-40) 09/10/19 08:15 ALT 25 units/L (7-56) 09/10/19 08:15 Alkaline Phosphatase 119 units/L (35-129) 09/10/19 08:15 Total Protein 7.5 g/dL (6.3-8.2) 09/10/19 08:15 Albumin 3.6 g/dL (3.9-5) L 09/10/19 08:15 Albumin/Globulin Ratio 0.9 % 09/10/19 08:15 Urine Color Colorless (Yellow) 09/09/19 Unknown Urine Turbidity Clear (Clear) 09/09/19 Unknown Urine pH 6.0 (5.0-7.0) 09/09/19 Unknown Ur Specific [place] 1.022 (1.003-1.030) 09/09/19 Unknown Urine Protein 30 mg/dl mg/dL (Negative) 09/09/19 Unknown Urine Glucose (UA) >=500 mg/dL (Negative) 09/09/19 Unknown Urine Ketones Neg mg/dL (Negative) 09/09/19 Unknown Urine Blood Neg (Negative) 09/09/19 Unknown Urine Nitrite Neg (Negative) 09/09/19 Unknown Urine Bilirubin Neg (Negative) 09/09/19 Unknown Urine Urobilinogen < 2.0 mg/dL (<2.0) 09/09/19 Unknown Ur Leukocyte Esterase Neg (Negative) 09/09/19 Unknown Urine WBC (Auto) < 1.0 /HPF (0.0-6.0) 09/09/19 Unknown Urine RBC (Auto) < 1.0 /HPF (0.0-6.0) 09/09/19 Unknown Active Medications - Current Medications Current Medications: Generic Name Dose Route Start Last Admin Trade Name Freq PRN Reason Stop Dose Admin Acetaminophen 650 mg 09/09/19 03:11 Tylenol PO Q4H PRN Pain MILD(1-3)/Fever >100.5/ALBRIGHT Amlodipine Besylate 10 mg 09/09/19 10:00 09/10/19 09:19 Amlodipine PO 10 mg DAILY AMY Administration Enoxaparin Sodium 40 mg 09/09/19 10:00 09/10/19 09:21 Enoxaparin SUB-Q 40 mg QDAY@1000 AMY Administration Hydralazine HCl 5 mg 09/09/19 02:23 Apresoline IV Q6H PRN Hypertension Insulin Human Isoph/Insulin Regular 30 unit 09/10/19 17:00 Humulin 70/30 SUB-Q BIDDIAB AMY Insulin Human Lispro 0 unit 09/09/19 22:00 09/10/19 12:31 Humalog SUB-Q 10 unit ACHS AMY Administration Protocol Ondansetron HCl 4 mg 09/09/19 03:11 Zofran IV Q8H PRN Nausea And Vomiting Sodium Chloride 10 ml 09/09/19 10:00 09/10/19 12:29 Sodium Chloride Flush Syringe 10 Ml IV 10 ml BID AMY Administration Sodium Chloride 10 ml 09/09/19 03:11 Sodium Chloride Flush Syringe 10 Ml IV PRN PRN LINE FLUSH
[2019-09-11 05:54] LABS: Hematocrit 45.2 % (35.5-45.6); Hemoglobin 14.8 gm/dl (11.8-15.2); Mean Corpuscular HGB Conc 33 % (32-34); Mean Corpuscular Volume 81 fl (84-94); Platelet Count 242 K/mm3 (140-440); Red Blood Count 5.59 M/mm3 (3.65-5.03); Red Cell Distribution Width 14.9 % (13.2-15.2)
[2019-09-11 06:38] LABS: Calcium 8.8 mg/dL (8.4-10.2)
[2019-09-11 08:16] LABS: Large Platelets Few; Platelet Estimate Consistent w Auto; RBC Morphology Normal; Total Cells Counted 100
[2019-09-11] MEDS: INSULIN NPH/REGULAR 70/30 INJ SUB-Q SCH ×2 (08:47→17:58)
[2019-09-11] MEDS: INSULIN LISPRO 100 UNIT/ML SUB-Q SCH ×4 (08:51→22:34)
[2019-09-11] MEDS ORDERED: WATER FOR INJ Sterile (PF) 10 ML ONE (09:34)
[2019-09-11] MEDS: amLODIPine 10 MG TAB PO SCH (09:40)
[2019-09-11] MEDS: ENOXAPARIN 40 MG/0.4 ML INJ SUB-Q SCH (09:41)
[2019-09-11] MEDS ORDERED: WATER FOR INJ Sterile (PF) 10 ML IM SCH (11:00)
[2019-09-11] MEDS ORDERED: LISINOPRIL 40 MG TAB PO SCH (11:00)
[2019-09-11] MEDS ORDERED: INSULIN NPH/REGULAR 70/30 INJ SUB-Q SCH (11:32)
--- NOTE | 2019-09-11 11:34 | Progress Note ---
Assessment and Plan Assessment and plan: ---HONK: Rigorous IV hydration, normal saline bolus Continue insulin drip, clear liquid diet Supportive care HbA1c 12.3 Case management assist at discharge --Acute Renal failure; vasomotor nephropathy, Secondary to severe dehydration Rigorous IV hydration, avoid nephrotoxins Nephrology evaluation if needed --New-onset diabetes mellitus; hyperosmolar nonketotic state On insulin drip, once blood sugars reasonable level, DC insulin drip Start long-acting 7030 insulin, diabetic education, nutrition education --Severe Dehydration; secondary to hyperglycemia IV hydration, monitor input output --Hyperkalemia; Kayexalate, monitor electrolytes --Accelerated Hypertension: Continue current antihypertensives, when necessary medications --Pseudohyponatremia; due to hyperglycemia Improving, monitor electrolytes --Hypercalcemia; secondary to severe dehydration gentle dehydration, Continue IV fluids --Obesity; BMI 36.1 Advised weight reduction when medically stable --DVT prophylaxis; Heparin renal dose Monitor closely and adjust management as needed Plan of care reviewed with the patient his nurse Stable to transfer out of ICU to medical floor Possible discharge in 1-2 days if stable Critical care time 32 minutes History Interval history: Patient seen and examined medical records reviewed No new events reported by the nursing Vital signs noted Alert awake oriented x3 Blood sugars reasonable control Hospitalist Physical - Constitutional Vitals: Temp Pulse Resp BP Pulse Ox 98.1 F 95 H 18 173/115 98 09/11/19 06:00 09/11/19 09:40 09/11/19 06:00 09/11/19 09:40 09/11/19 06:00 General appearance: Present: mild distress, well-nourished, obese - EENT Eyes: Present: PERRL, EOM intact - Neck Neck: Present: supple, normal ROM - Respiratory Respiratory effort: normal Respiratory: bilateral: diminished, negative: rales, rhonchi, wheezing - Extremities Extremities: no ischemia, pulses intact, pulses symmetrical - Abdominal General gastrointestinal: soft, non-tender, non-distended, normal bowel sounds - Integumentary Integumentary: Present: clear, warm - Psychiatric Psychiatric: appropriate mood/affect, cooperative - Neurologic Neurologic: CNII-XII intact, moves all extremities Results - Labs CBC & Chem 7: 09/11/19 05:21 09/11/19 05:21 Labs: Laboratory Last Values WBC 5.5 K/mm3 (4.5-11.0) 09/11/19 05:21 RBC 5.59 M/mm3 (3.65-5.03) H 09/11/19 05:21 Hgb 14.8 gm/dl (11.8-15.2) 09/11/19 05:21 Hct 45.2 % (35.5-45.6) D 09/11/19 05:21 MCV 81 fl (84-94) L 09/11/19 05:21 MCH 27 pg (28-32) L 09/11/19 05:21 MCHC 33 % (32-34) 09/11/19 05:21 RDW 14.9 % (13.2-15.2) 09/11/19 05:21 Plt Count 242 K/mm3 (140-440) 09/11/19 05:21 Lymph % (Auto) 16.2 % (13.4-35.0) 09/09/19 00:50 Crisp % (Auto) 10.3 % (0.0-7.3) H 09/09/19 00:50 Eos % (Auto) 0.2 % (0.0-4.3) 09/09/19 00:50 Baso % (Auto) Stretch Box Tender 09/11/19 05:21 Lymph # 1.1 K/mm3 (1.2-5.4) L 09/09/19 00:50 Crisp # 0.7 K/mm3 (0.0-0.8) 09/09/19 00:50 Eos # 0.0 K/mm3 (0.0-0.4) 09/09/19 00:50 Baso # 0.0 K/mm3 (0.0-0.1) 09/09/19 00:50 Add Manual Diff Complete 09/11/19 05:21 Total Counted 100 09/11/19 05:21 Seg Neutrophils % 72.9 % (40.0-70.0) H 09/09/19 00:50 Seg Neuts % (Manual) 57.0 % (40.0-70.0) 09/11/19 05:21 Band Neutrophils % 0 % 09/11/19 05:21 Lymphocytes % (Manual) 31.0 % (13.4-35.0) 09/11/19 05:21 Reactive Lymphs % (Man) 0 % 09/11/19 05:21 Monocytes % (Manual) 7.0 % (0.0-7.3) 09/11/19 05:21 Eosinophils % (Manual) 3.0 % (0.0-4.3) 09/11/19 05:21 Basophils % (Manual) 2.0 % (0.0-1.8) H 09/11/19 05:21 Metamyelocytes % 0 % 09/11/19 05:21 Myelocytes % 0 % 09/11/19 05:21 Promyelocytes % 0 % 09/11/19 05:21 Blast Cells % 0 % 09/11/19 05:21 Nucleated RBC % Not Reportable 09/11/19 05:21 Seg Neutrophils # 4.9 K/mm3 (1.8-7.7) 09/09/19 00:50 Seg Neutrophils # Man 3.1 K/mm3 (1.8-7.7) 09/11/19 05:21 Band Neutrophils # 0.0 K/mm3 09/11/19 05:21 Lymphocytes # (Manual) 1.7 K/mm3 (1.2-5.4) 09/11/19 05:21 Abs React Lymphs (Man) 0.0 K/mm3 09/11/19 05:21 Monocytes # (Manual) 0.4 K/mm3 (0.0-0.8) 09/11/19 05:21 Eosinophils # (Manual) 0.2 K/mm3 (0.0-0.4) 09/11/19 05:21 Basophils # (Manual) 0.1 K/mm3 (0.0-0.1) 09/11/19 05:21 Metamyelocytes # 0.0 K/mm3 09/11/19 05:21 Myelocytes # 0.0 K/mm3 09/11/19 05:21 Promyelocytes # 0.0 K/mm3 09/11/19 05:21 Blast Cells # 0.0 K/mm3 09/11/19 05:21 WBC Morphology Not Reportable 09/11/19 05:21 Hypersegmented Neuts Not Reportable 09/11/19 05:21 Hyposegmented Neuts Not Reportable 09/11/19 05:21 Hypogranular Neuts Not Reportable 09/11/19 05:21 Smudge Cells Not Reportable 09/11/19 05:21 Toxic Granulation Not Reportable 09/11/19 05:21 Toxic Vacuolation Not Reportable 09/11/19 05:21 Dohle Bodies Not Reportable 09/11/19 05:21 Pelger-Huet Anomaly Not Reportable 09/11/19 05:21 Rosalva Rods Not Reportable 09/11/19 05:21 Platelet Estimate Consistent w auto 09/11/19 05:21 Clumped Platelets Not Reportable 09/11/19 05:21 Plt Clumps, EDTA Not Reportable 09/11/19 05:21 Large Platelets Few 09/11/19 05:21 Giant Platelets Not Reportable 09/11/19 05:21 Platelet Satelliting Not Reportable 09/11/19 05:21 Plt Morphology Comment Not Reportable 09/11/19 05:21 RBC Morphology Normal 09/11/19 05:21 Dimorphic RBCs Not Reportable 09/11/19 05:21 Polychromasia Not Reportable 09/11/19 05:21 Hypochromasia Not Reportable 09/11/19 05:21 Poikilocytosis Not Reportable 09/11/19 05:21 Anisocytosis Not Reportable 09/11/19 05:21 Microcytosis Not Reportable 09/11/19 05:21 Macrocytosis Not Reportable 09/11/19 05:21 Spherocytes Not Reportable 09/11/19 05:21 Pappenheimer Bodies Not Reportable 09/11/19 05:21 Sickle Cells Not Reportable 09/11/19 05:21 Target Cells Not Reportable 09/11/19 05:21 Tear Drop Cells Not Reportable 09/11/19 05:21 Ovalocytes Not Reportable 09/11/19 05:21 Helmet Cells Not Reportable 09/11/19 05:21 Galaviz-Waelder Bodies Not Reportable 09/11/19 05:21 [place] Rings Not Reportable 09/11/19 05:21 Cornelio Cells Not Reportable 09/11/19 05:21 Bite Cells Not Reportable 09/11/19 05:21 Crenated Cell Not Reportable 09/11/19 05:21 Elliptocytes Not Reportable 09/11/19 05:21 Acanthocytes (Spur) Not Reportable 09/11/19 05:21 Rouleaux Not Reportable 09/11/19 05:21 Hemoglobin C Crystals Not Reportable 09/11/19 05:21 Schistocytes Not Reportable 09/11/19 05:21 Malaria parasites Not Reportable 09/11/19 05:21 Travis Bodies Not Reportable 09/11/19 05:21 Hem Pathologist Commnt No 09/11/19 05:21 VBG pH 7.353 (7.320-7.420) 09/09/19 00:50 Sodium 141 mmol/L (137-145) 09/11/19 05:21 Potassium 3.9 mmol/L (3.6-5.0) 09/11/19 05:21 Chloride 102.6 mmol/L (98-107) 09/11/19 05:21 Carbon Dioxide 23 mmol/L (22-30) 09/11/19 05:21 Anion Gap 19 mmol/L 09/11/19 05:21 BUN 15 mg/dL (9-20) 09/11/19 05:21 Creatinine 1.6 mg/dL (0.8-1.5) H 09/11/19 05:21 Estimated GFR 48 ml/min 09/11/19 05:21 BUN/Creatinine Ratio 9 % 09/11/19 05:21 Glucose 230 mg/dL (75-100) H 09/11/19 05:21 POC Glucose 259 (70-105) H 09/11/19 07:57 Hemoglobin A1c 12.3 % (4-6) H 09/09/19 04:12 Calcium 8.8 mg/dL (8.4-10.2) 09/11/19 05:21 Phosphorus 3.80 mg/dL (2.5-4.5) D 09/10/19 08:15 Magnesium 2.10 mg/dL (1.7-2.3) 09/10/19 08:15 Total Bilirubin 0.50 mg/dL (0.1-1.2) 09/10/19 08:15 Direct Bilirubin < 0.2 mg/dL (0-0.2) 09/10/19 08:15 Indirect Bilirubin 0.3 mg/dL 09/10/19 08:15 AST 30 units/L (5-40) 09/10/19 08:15 ALT 25 units/L (7-56) 09/10/19 08:15 Alkaline Phosphatase 119 units/L (35-129) 09/10/19 08:15 Total Protein 7.5 g/dL (6.3-8.2) 09/10/19 08:15 Albumin 3.6 g/dL (3.9-5) L 09/10/19 08:15 Albumin/Globulin Ratio 0.9 % 09/10/19 08:15 Urine Color Colorless (Yellow) 09/09/19 Unknown Urine Turbidity Clear (Clear) 09/09/19 Unknown Urine pH 6.0 (5.0-7.0) 09/09/19 Unknown Ur Specific [place] 1.022 (1.003-1.030) 09/09/19 Unknown Urine Protein 30 mg/dl mg/dL (Negative) 09/09/19 Unknown Urine Glucose (UA) >=500 mg/dL (Negative) 09/09/19 Unknown Urine Ketones Neg mg/dL (Negative) 09/09/19 Unknown Urine Blood Neg (Negative) 09/09/19 Unknown Urine Nitrite Neg (Negative) 09/09/19 Unknown Urine Bilirubin Neg (Negative) 09/09/19 Unknown Urine Urobilinogen < 2.0 mg/dL (<2.0) 09/09/19 Unknown Ur Leukocyte Esterase Neg (Negative) 09/09/19 Unknown Urine WBC (Auto) < 1.0 /HPF (0.0-6.0) 09/09/19 Unknown Urine RBC (Auto) < 1.0 /HPF (0.0-6.0) 09/09/19 Unknown Active Medications - Current Medications Current Medications: Generic Name Dose Route Start Last Admin Trade Name Freq PRN Reason Stop Dose Admin Acetaminophen 650 mg 09/09/19 03:11 09/10/19 20:00 Tylenol PO 650 mg Q4H PRN Administration Pain MILD(1-3)/Fever >100.5/ALBRIGHT Amlodipine Besylate 10 mg 09/09/19 10:00 09/11/19 09:40 Amlodipine PO 10 mg DAILY [facility] Administration Enoxaparin Sodium 40 mg 09/09/19 10:00 09/11/19 09:41 Enoxaparin SUB-Q 40 mg QDAY@1000 [facility]Y Administration Hydralazine HCl 5 mg 09/09/19 02:23 Apresoline IV Q6H PRN Hypertension Hydrochlorothiazide 12.5 mg 09/11/19 11:00 Hctz PO QDAY [facility] Insulin Human Isoph/Insulin Regular 35 unit 09/11/19 17:00 Humulin 70/30 SUB-Q BIDDIAB [facility] Insulin Human Lispro 0 unit 09/09/19 22:00 09/11/19 08:51 Humalog SUB-Q 6 unit ACHS [facility]Y Administration Protocol Lisinopril 10 mg 09/11/19 11:30 Zestril PO QDAY [facility] Ondansetron HCl 4 mg 09/09/19 03:11 Zofran IV Q8H PRN Nausea And Vomiting Sodium Chloride 10 ml 09/09/19 10:00 09/11/19 09:58 Sodium Chloride Flush Syringe 10 Ml IV 10 ml BID [facility]Y Administration Sodium Chloride 10 ml 09/09/19 03:11 Sodium Chloride Flush Syringe 10 Ml IV PRN PRN LINE FLUSH
[2019-09-11] MEDS: LISINOPRIL 10 MG TAB PO SCH (12:47)
[2019-09-11] MEDS: hydroCHLOROthiazide 12.5 MG CAP PO SCH (12:48)
[2019-09-12] MEDS: INSULIN LISPRO 100 UNIT/ML SUB-Q SCH ×4 (08:23→22:15)
[2019-09-12] MEDS: INSULIN NPH/REGULAR 70/30 INJ SUB-Q SCH ×2 (08:23→17:31)
[2019-09-12] MEDS: amLODIPine 10 MG TAB PO SCH (09:21)
[2019-09-12] MEDS: ENOXAPARIN 40 MG/0.4 ML INJ SUB-Q SCH (09:22)
[2019-09-12] MEDS: hydroCHLOROthiazide 12.5 MG CAP PO SCH (09:22)
[2019-09-12] MEDS: LISINOPRIL 10 MG TAB PO SCH (10:05)
--- NOTE | 2019-09-12 10:33 | Progress Note ---
Assessment and Plan - Patient Problems (1) Obesity Current Visit: Yes Status: Acute Qualifiers: Obesity type: due to excess calories (2) Diabetic hyperosmolar non-ketotic state Current Visit: Yes Status: Acute (3) Renal failure Current Visit: Yes Status: Acute Qualifiers: Renal failure chronicity: acute Acute renal failure type: unspecified Qualified Code(s): N17.9 - Acute kidney failure, unspecified Subjective Principal diagnosis: HONK Interval history: feels better, no sob Objective Vital Signs - 12hr 09/11/19 09/12/19 09/12/19 22:46 05:39 09:21 Temperature 97.8 F 98.0 F Pulse Rate 87 82 Respiratory 20 18 Rate Blood Pressure 123/91 112/55 131/70 O2 Sat by Pulse 99 98 Oximetry Constitutional: no acute distress, alert, other (obese) Eyes: non-icteric ENT: oropharynx moist Neck: supple Effort: normal Cardiovascular: regular rate and rhythm Gastrointestinal: normoactive bowel sounds, soft, non-tender, non-distended Integumentary: normal Extremities: no cyanosis, no edema, pink and warm Neurologic: normal mental status, non-focal exam, pupils equal and round, CN II- XII normal Psychiatric: mood appropriate, affect normal CBC and BMP: 09/11/19 05:21 09/11/19 05:21 Abnormal lab findings: Abnormal Labs 09/09/19 09/09/19 09/09/19 00:14 00:50 00:50 RBC 6.57 H Hgb 17.2 H Hct 58.1 H MCV MCH 26 L MCHC 30 L RDW 16.2 H [place] % (Auto) 10.3 H Lymph # 1.1 L Seg Neutrophils % 72.9 H Basophils % (Manual) Sodium 121 L Potassium 6.5 H* Chloride 78.6 L Carbon Dioxide BUN 34 H Creatinine 2.4 H Glucose 1601 H* POC Glucose > 500 H Hemoglobin A1c Calcium Magnesium Alkaline Phosphatase 169 H Total Protein 8.3 H Albumin 09/09/19 09/09/19 09/09/19 03:27 04:12 04:12 RBC Hgb Hct MCV MCH MCHC RDW [place] % (Auto) Lymph # Seg Neutrophils % Basophils % (Manual) Sodium Potassium Chloride Carbon Dioxide BUN 32 H Creatinine 2.3 H Glucose 994 H* POC Glucose > 500 H Hemoglobin A1c Calcium 10.3 H Magnesium 2.90 H Alkaline Phosphatase Total Protein Albumin 09/09/19 09/09/19 09/09/19 04:12 04:29 05:25 RBC Hgb Hct MCV MCH MCHC RDW [place] % (Auto) Lymph # Seg Neutrophils % Basophils % (Manual) Sodium Potassium Chloride Carbon Dioxide BUN Creatinine Glucose POC Glucose > 500 H > 500 H Hemoglobin A1c 12.3 H Calcium Magnesium Alkaline Phosphatase Total Protein Albumin 09/09/19 09/09/19 09/09/19 06:55 07:45 09:30 RBC Hgb Hct MCV MCH MCHC RDW [place] % (Auto) Lymph # Seg Neutrophils % Basophils % (Manual) Sodium Potassium 5.3 H 5.4 H Chloride Carbon Dioxide 18 L 20 L BUN 31 H 30 H Creatinine 1.9 H 2.0 H Glucose 667 H* 646 H* POC Glucose > 500 H Hemoglobin A1c Calcium 10.7 H 10.9 H Magnesium Alkaline Phosphatase Total Protein Albumin 09/09/19 09/09/19 09/09/19 10:25 12:17 13:12 RBC Hgb Hct MCV MCH MCHC RDW [place] % (Auto) Lymph # Seg Neutrophils % Basophils % (Manual) Sodium Potassium Chloride Carbon Dioxide 19 L BUN 26 H Creatinine 2.0 H Glucose 491 H POC Glucose > 500 H 391 H Hemoglobin A1c Calcium Magnesium Alkaline Phosphatase Total Protein Albumin 09/09/19 09/09/19 09/09/19 13:26 14:50 15:57 RBC Hgb Hct MCV MCH MCHC RDW [place] % (Auto) Lymph # Seg Neutrophils % Basophils % (Manual) Sodium Potassium Chloride Carbon Dioxide BUN Creatinine Glucose POC Glucose 384 H 361 H 308 H Hemoglobin A1c Calcium Magnesium Alkaline Phosphatase Total Protein Albumin 09/09/19 09/09/19 09/09/19 16:51 17:56 20:17 RBC Hgb Hct MCV MCH MCHC RDW [place] % (Auto) Lymph # Seg Neutrophils % Basophils % (Manual) Sodium Potassium Chloride Carbon Dioxide BUN 23 H 22 H Creatinine 1.8 H 1.8 H Glucose 317 H 535 H* POC Glucose 248 H Hemoglobin A1c Calcium Magnesium Alkaline Phosphatase Total Protein Albumin 09/09/19 09/10/19 09/10/19 21:23 08:15 08:31 RBC Hgb Hct MCV MCH MCHC RDW [place] % (Auto) Lymph # Seg Neutrophils % Basophils % (Manual) Sodium Potassium Chloride Carbon Dioxide 21 L BUN Creatinine 1.7 H Glucose 423 H POC Glucose 444 H 338 H Hemoglobin A1c Calcium Magnesium Alkaline Phosphatase Total Protein Albumin 3.6 L 09/10/19 09/10/19 09/10/19 09:21 12:30 16:53 RBC Hgb Hct MCV MCH MCHC RDW [place] % (Auto) Lymph # Seg Neutrophils % Basophils % (Manual) Sodium Potassium Chloride Carbon Dioxide BUN Creatinine Glucose POC Glucose 430 H 403 H 276 H Hemoglobin A1c Calcium Magnesium Alkaline Phosphatase Total Protein Albumin 09/10/19 09/11/19 09/11/19 21:42 05:21 05:21 RBC 5.59 H Hgb Hct MCV 81 L MCH 27 L MCHC RDW [place] % (Auto) Lymph # Seg Neutrophils % Basophils % (Manual) 2.0 H Sodium Potassium Chloride Carbon Dioxide BUN Creatinine 1.6 H Glucose 230 H POC Glucose 265 H Hemoglobin A1c Calcium Magnesium Alkaline Phosphatase Total Protein Albumin 09/11/19 09/11/19 09/11/19 07:57 11:38 17:52 RBC Hgb Hct MCV MCH MCHC RDW [place] % (Auto) Lymph # Seg Neutrophils % Basophils % (Manual) Sodium Potassium Chloride Carbon Dioxide BUN Creatinine Glucose POC Glucose 259 H 346 H 267 H Hemoglobin A1c Calcium Magnesium Alkaline Phosphatase Total Protein Albumin 09/11/19 09/12/19 22:00 07:47 RBC Hgb Hct MCV MCH MCHC RDW [place] % (Auto) Lymph # Seg Neutrophils % Basophils % (Manual) Sodium Potassium Chloride Carbon Dioxide BUN Creatinine Glucose POC Glucose 252 H 206 H Hemoglobin A1c Calcium Magnesium Alkaline Phosphatase Total Protein Albumin
--- NOTE | 2019-09-12 19:35 | Progress Note ---
Assessment and Plan Assessment and plan: --New-onset type 2 diabetes mellitus; Uncontrolled, Accu-Chek sliding scale coverage ADA diet Increase to 7030 Novolin 30 -35 units twice a day Diabetic education, nutrition education --HONK: Resolved Rigorous IV hydration, normal saline bolus s/p insulin drip, ADA diet Supportive care HbA1c 12.3 Case management assist at discharge --Acute Renal failure; vasomotor nephropathy, Secondary to severe dehydration Continue IV hydration, avoid nephrotoxins Trending down --Severe Dehydration; secondary to hyperglycemia IV hydration, mechanically improve --Hyperkalemia; resolved --Accelerated Hypertension: Moderate control Continue current antihypertensives, when necessary medications --Pseudohyponatremia; resolved --Hypercalcemia; secondary to severe dehydration gentle dehydration, Continue IV fluids --Obesity; BMI 36.1 Possible discharge in 1-2 days if stable History Interval history: Patient seen and examined medical records reviewed No new events reported by the nursing Blood sugars remain uncontrolled Adjust insulin dose Patient has no new complaints Vital signs noted Hospitalist Physical - Constitutional Vitals: Temp Pulse Resp BP Pulse Ox 98.2 F 92 H 18 127/82 97 09/12/19 17:06 09/12/19 17:06 09/12/19 17:06 09/12/19 17:06 09/12/19 17:06 General appearance: Present: no acute distress, well-nourished, obese - EENT Eyes: Present: PERRL, EOM intact - Neck Neck: Present: supple, normal ROM - Respiratory Respiratory effort: normal Respiratory: bilateral: diminished, negative: rales, rhonchi, wheezing - Cardiovascular Rhythm: regular Heart Sounds: Present: S1 & S2 - Extremities Extremities: no ischemia, No edema - Abdominal General gastrointestinal: soft, non-tender, non-distended, normal bowel sounds - Integumentary Integumentary: Present: clear, warm - Psychiatric Psychiatric: appropriate mood/affect, cooperative - Neurologic Neurologic: CNII-XII intact, moves all extremities Results - Labs CBC & Chem 7: 09/11/19 05:21 09/11/19 05:21 Labs: Laboratory Last Values WBC 5.5 K/mm3 (4.5-11.0) 09/11/19 05:21 RBC 5.59 M/mm3 (3.65-5.03) H 09/11/19 05:21 Hgb 14.8 gm/dl (11.8-15.2) 09/11/19 05:21 Hct 45.2 % (35.5-45.6) D 09/11/19 05:21 MCV 81 fl (84-94) L 09/11/19 05:21 MCH 27 pg (28-32) L 09/11/19 05:21 MCHC 33 % (32-34) 09/11/19 05:21 RDW 14.9 % (13.2-15.2) 09/11/19 05:21 Plt Count 242 K/mm3 (140-440) 09/11/19 05:21 Lymph % (Auto) 16.2 % (13.4-35.0) 09/09/19 00:50 [place] % (Auto) 10.3 % (0.0-7.3) H 09/09/19 00:50 Eos % (Auto) 0.2 % (0.0-4.3) 09/09/19 00:50 Baso % (Auto) Him Assistant 09/11/19 05:21 Lymph # 1.1 K/mm3 (1.2-5.4) L 09/09/19 00:50 [place] # 0.7 K/mm3 (0.0-0.8) 09/09/19 00:50 Eos # 0.0 K/mm3 (0.0-0.4) 09/09/19 00:50 Baso # 0.0 K/mm3 (0.0-0.1) 09/09/19 00:50 Add Manual Diff Complete 09/11/19 05:21 Total Counted 100 09/11/19 05:21 Seg Neutrophils % 72.9 % (40.0-70.0) H 09/09/19 00:50 Seg Neuts % (Manual) 57.0 % (40.0-70.0) 09/11/19 05:21 Band Neutrophils % 0 % 09/11/19 05:21 Lymphocytes % (Manual) 31.0 % (13.4-35.0) 09/11/19 05:21 Reactive Lymphs % (Man) 0 % 09/11/19 05:21 Monocytes % (Manual) 7.0 % (0.0-7.3) 09/11/19 05:21 Eosinophils % (Manual) 3.0 % (0.0-4.3) 09/11/19 05:21 Basophils % (Manual) 2.0 % (0.0-1.8) H 09/11/19 05:21 Metamyelocytes % 0 % 09/11/19 05:21 Myelocytes % 0 % 09/11/19 05:21 Promyelocytes % 0 % 09/11/19 05:21 Blast Cells % 0 % 09/11/19 05:21 Nucleated RBC % Not Reportable 09/11/19 05:21 Seg Neutrophils # 4.9 K/mm3 (1.8-7.7) 09/09/19 00:50 Seg Neutrophils # Man 3.1 K/mm3 (1.8-7.7) 09/11/19 05:21 Band Neutrophils # 0.0 K/mm3 09/11/19 05:21 Lymphocytes # (Manual) 1.7 K/mm3 (1.2-5.4) 09/11/19 05:21 Abs React Lymphs (Man) 0.0 K/mm3 09/11/19 05:21 Monocytes # (Manual) 0.4 K/mm3 (0.0-0.8) 09/11/19 05:21 Eosinophils # (Manual) 0.2 K/mm3 (0.0-0.4) 09/11/19 05:21 Basophils # (Manual) 0.1 K/mm3 (0.0-0.1) 09/11/19 05:21 Metamyelocytes # 0.0 K/mm3 09/11/19 05:21 Myelocytes # 0.0 K/mm3 09/11/19 05:21 Promyelocytes # 0.0 K/mm3 09/11/19 05:21 Blast Cells # 0.0 K/mm3 09/11/19 05:21 WBC Morphology Not Reportable 09/11/19 05:21 Hypersegmented Neuts Not Reportable 09/11/19 05:21 Hyposegmented Neuts Not Reportable 09/11/19 05:21 Hypogranular Neuts Not Reportable 09/11/19 05:21 Smudge Cells Not Reportable 09/11/19 05:21 Toxic Granulation Not Reportable 09/11/19 05:21 Toxic Vacuolation Not Reportable 09/11/19 05:21 Dohle Bodies Not Reportable 09/11/19 05:21 Pelger-Huet Anomaly Not Reportable 09/11/19 05:21 Rosalva Rods Not Reportable 09/11/19 05:21 Platelet Estimate Consistent w auto 09/11/19 05:21 Clumped Platelets Not Reportable 09/11/19 05:21 Plt Clumps, EDTA Not Reportable 09/11/19 05:21 Large Platelets Few 09/11/19 05:21 Giant Platelets Not Reportable 09/11/19 05:21 Platelet Satelliting Not Reportable 09/11/19 05:21 Plt Morphology Comment Not Reportable 09/11/19 05:21 RBC Morphology Normal 09/11/19 05:21 Dimorphic RBCs Not Reportable 09/11/19 05:21 Polychromasia Not Reportable 09/11/19 05:21 Hypochromasia Not Reportable 09/11/19 05:21 Poikilocytosis Not Reportable 09/11/19 05:21 Anisocytosis Not Reportable 09/11/19 05:21 Microcytosis Not Reportable 09/11/19 05:21 Macrocytosis Not Reportable 09/11/19 05:21 Spherocytes Not Reportable 09/11/19 05:21 Pappenheimer Bodies Not Reportable 09/11/19 05:21 Sickle Cells Not Reportable 09/11/19 05:21 Target Cells Not Reportable 09/11/19 05:21 Tear Drop Cells Not Reportable 09/11/19 05:21 Ovalocytes Not Reportable 09/11/19 05:21 Helmet Cells Not Reportable 09/11/19 05:21 Galaviz-Colo Bodies Not Reportable 09/11/19 05:21 [place] Rings Not Reportable 09/11/19 05:21 [place] Cells Not Reportable 09/11/19 05:21 Bite Cells Not Reportable 09/11/19 05:21 Crenated Cell Not Reportable 09/11/19 05:21 Elliptocytes Not Reportable 09/11/19 05:21 Acanthocytes (Spur) Not Reportable 09/11/19 05:21 Rouleaux Not Reportable 09/11/19 05:21 Hemoglobin C Crystals Not Reportable 09/11/19 05:21 Schistocytes Not Reportable 09/11/19 05:21 Malaria parasites Not Reportable 09/11/19 05:21 [place] Bodies Not Reportable 09/11/19 05:21 Hem Pathologist Commnt No 09/11/19 05:21 VBG pH 7.353 (7.320-7.420) 09/09/19 00:50 Sodium 141 mmol/L (137-145) 09/11/19 05:21 Potassium 3.9 mmol/L (3.6-5.0) 09/11/19 05:21 Chloride 102.6 mmol/L (98-107) 09/11/19 05:21 Carbon Dioxide 23 mmol/L (22-30) 09/11/19 05:21 Anion Gap 19 mmol/L 09/11/19 05:21 BUN 15 mg/dL (9-20) 09/11/19 05:21 Creatinine 1.6 mg/dL (0.8-1.5) H 09/11/19 05:21 Estimated GFR 48 ml/min 09/11/19 05:21 BUN/Creatinine Ratio 9 % 09/11/19 05:21 Glucose 230 mg/dL (75-100) H 09/11/19 05:21 POC Glucose 188 (70-105) H 09/12/19 16:22 Hemoglobin A1c 12.3 % (4-6) H 09/09/19 04:12 Calcium 8.8 mg/dL (8.4-10.2) 09/11/19 05:21 Phosphorus 3.80 mg/dL (2.5-4.5) D 09/10/19 08:15 Magnesium 2.10 mg/dL (1.7-2.3) 09/10/19 08:15 Total Bilirubin 0.50 mg/dL (0.1-1.2) 09/10/19 08:15 Direct Bilirubin < 0.2 mg/dL (0-0.2) 09/10/19 08:15 Indirect Bilirubin 0.3 mg/dL 09/10/19 08:15 AST 30 units/L (5-40) 09/10/19 08:15 ALT 25 units/L (7-56) 09/10/19 08:15 Alkaline Phosphatase 119 units/L (35-129) 09/10/19 08:15 Total Protein 7.5 g/dL (6.3-8.2) 09/10/19 08:15 Albumin 3.6 g/dL (3.9-5) L 09/10/19 08:15 Albumin/Globulin Ratio 0.9 % 09/10/19 08:15 Urine Color Colorless (Yellow) 09/09/19 Unknown Urine Turbidity Clear (Clear) 09/09/19 Unknown Urine pH 6.0 (5.0-7.0) 09/09/19 Unknown Ur Specific [place] 1.022 (1.003-1.030) 09/09/19 Unknown Urine Protein 30 mg/dl mg/dL (Negative) 09/09/19 Unknown Urine Glucose (UA) >=500 mg/dL (Negative) 09/09/19 Unknown Urine Ketones Neg mg/dL (Negative) 09/09/19 Unknown Urine Blood Neg (Negative) 09/09/19 Unknown Urine Nitrite Neg (Negative) 09/09/19 Unknown Urine Bilirubin Neg (Negative) 09/09/19 Unknown Urine Urobilinogen < 2.0 mg/dL (<2.0) 09/09/19 Unknown Ur Leukocyte Esterase Neg (Negative) 09/09/19 Unknown Urine WBC (Auto) < 1.0 /HPF (0.0-6.0) 09/09/19 Unknown Urine RBC (Auto) < 1.0 /HPF (0.0-6.0) 09/09/19 Unknown Active Medications - Current Medications Current Medications: Generic Name Dose Route Start Last Admin Trade Name Freq PRN Reason Stop Dose Admin Acetaminophen 650 mg 09/09/19 03:11 09/10/19 20:00 Tylenol PO 650 mg Q4H PRN Administration Pain MILD(1-3)/Fever >100.5/ALBRIGHT Amlodipine Besylate 10 mg 09/09/19 10:00 09/12/19 09:21 Amlodipine PO 10 mg DAILY AMY Administration Enoxaparin Sodium 40 mg 09/09/19 10:00 09/12/19 09:22 Enoxaparin SUB-Q 40 mg QDAY@1000 AMY Administration Hydralazine HCl 5 mg 09/09/19 02:23 Apresoline IV Q6H PRN Hypertension Hydrochlorothiazide 12.5 mg 09/11/19 11:00 09/12/19 09:22 Hctz PO 12.5 mg QDAY AMY Administration Insulin Human Isoph/Insulin Regular 35 unit 09/11/19 17:00 09/12/19 17:31 Humulin 70/30 SUB-Q 35 unit BIDDIAB AMY Administration Insulin Human Lispro 0 unit 09/09/19 22:00 09/12/19 17:32 Humalog SUB-Q 3 unit ACHS AMY Administration Protocol Lisinopril 10 mg 09/11/19 11:30 09/12/19 10:05 Zestril PO 10 mg QDAY AMY Administration Ondansetron HCl 4 mg 09/09/19 03:11 Zofran IV Q8H PRN Nausea And Vomiting Sodium Chloride 10 ml 09/09/19 10:00 09/12/19 09:23 Sodium Chloride Flush Syringe 10 Ml IV 10 ml BID AMY Administration Sodium Chloride 10 ml 09/09/19 03:11 Sodium Chloride Flush Syringe 10 Ml IV PRN PRN LINE FLUSH Nutrition/Malnutrition Assess - Dietary Evaluation Nutrition/Malnutrition Findings: Nutrition Notes Start: 09/12/19 11:35 Freq: Status: Active Protocol: Document 09/12/19 11:35 LP (Rec: 09/12/19 11:45 LP [id number]) Nutrition Notes Need for Assessment generated from: MD Order,Education Initial or Follow up Brief Note Current Diagnosis Acute Kidney Injury,Diabetes, Hypertension Labs/Tests A1c 12.3 Subjective/Other Information Called by case management to educate pt on new DM. Pt states eating well and had wt loss SCOUTS due to uncontrolled DM. Pt states drinking maria aid and tea mostly. Pt states eating fast food and fried food frequently. Minimum of two criteria No Interpretation of Weight Loss (non- 1-2% in 1 week severe) #1 Nutrition Diagnosis Food and nutrition-related knowledge deficit Etiology new DM As Evidenced by Signs and Symptoms A1c 12.3 Nutrition Intervention Teaching Recipient Patient,Family Learning Readiness Good Teaching Methods Discussion,Handout Response to Teaching Verbalize understanding Education Handouts Provided Consistent CHO diet Barriers to Learning No Barriers RD phone number provided Yes Patient aware of follow up options Yes Revisit per MD consult or patient Sign Off request:
[2019-09-12] MEDS ORDERED: INSULIN NPH/REGULAR 70/30 INJ SUB-Q SCH (19:37)
[2019-09-13 06:16] VITALS: BP 108/65
[2019-09-13] MEDS: INSULIN LISPRO 100 UNIT/ML SUB-Q SCH ×2 (08:52→12:32)
[2019-09-13] MEDS ORDERED: INSULIN NPH/REGULAR 70/30 INJ SUB-Q SCH (10:00)
[2019-09-13] MEDS: hydroCHLOROthiazide 12.5 MG CAP PO SCH (10:11)
[2019-09-13] MEDS: amLODIPine 10 MG TAB PO SCH (10:11)
[2019-09-13] MEDS: ENOXAPARIN 40 MG/0.4 ML INJ SUB-Q SCH (10:12)
[2019-09-13] MEDS: LISINOPRIL 10 MG TAB PO SCH (10:12)
--- NOTE | 2019-09-13 12:26 | Discharge Summary ---
Providers - Providers Date of Admission: 09/09/19 03:08 Date of discharge: 09/13/19 Attending physician: KATIE YI 09/09/19 03:11 Consult to Physician [CONS] Routine Comment: Consulting Provider: RUPERT PHELAN Physician Instructions: Reason For Exam: cc Primary care physician: DIRECTOR OF EPIDEMIOLOGY Hospitalization Reason for admission: Polyuria polydipsia/hyperosmolar nonketotic state Condition: Fair Pertinent studies: Renal ultrasound Hospital course: 39-year-old man with a history of hypertension, "borderline kidney problems" comes emergency room with complaints frequent urination, decreased appetite, drinking alot, generalized weakness, dry mouth, blurred vision for two weeks. Admits to weight loss of 15 pounds, unclear off timeframe Initial work-up is consistent with hyperosmolar nonketotic state, admitted to ICU initiated DKA protocol on insulin drip, aggressive IV hydration Medications optimized, initially was n.p.o. letter that was advanced as tolerated Patient was stabilized and transferred to the medical floor, blood pressures blood sugars diet counseling was done today patient is comfortable no new complaints vital signs stable Patient received diabetes education, diabetic diet education Today patient comfortable no new complaints vital signs stable physical examination unremarkable Hemodynamically and clinically stable at discharge Discharge diagnosis; --New-onset type 2 diabetes mellitus; Uncontrolled, Accu-Chek sliding scale coverage ADA diet Increase to 7030 Novolin 30 -35 units twice a day Diabetic education, nutrition education --HONK: Resolved Rigorous IV hydration, normal saline bolus s/p insulin drip, ADA diet Supportive care HbA1c 12.3 Case management assist at discharge --Acute Renal failure; vasomotor nephropathy, Secondary to severe dehydration Continue IV hydration, avoid nephrotoxins Trending down --Severe Dehydration; secondary to hyperglycemia IV hydration, mechanically improve --Hyperkalemia; resolved --Accelerated Hypertension: Moderate control Continue current antihypertensives, when necessary medications --Pseudohyponatremia; resolved --Hypercalcemia; secondary to severe dehydration gentle dehydration, Continue IV fluids --Obesity; BMI 36.1 Advised exercise and weight reduction Stable for discharge Disposition: TO HOME OR SELFCARE Time spent for discharge: 32 min Core Measure Documentation - Palliative Care Palliative Care/ Comfort Measures: Not Applicable - Core Measures Any of the following diagnoses?: none Exam - Constitutional Vitals: Temp Pulse Resp BP Pulse Ox 98.0 F 79 18 108/65 96 09/13/19 06:14 09/13/19 06:14 09/13/19 06:14 09/13/19 06:14 09/13/19 06:14 General appearance: Present: no acute distress, well-nourished, obese - EENT Eyes: Present: PERRL, EOM intact - Neck Neck: Present: supple, normal ROM - Respiratory Respiratory effort: normal Respiratory: bilateral: diminished, negative: rales, rhonchi, wheezing - Cardiovascular Rhythm: regular Heart Sounds: Present: S1 & S2 - Extremities Extremities: no ischemia, No edema - Abdominal General gastrointestinal: Present: soft, non-tender, non-distended, normal bowel sounds - Integumentary Integumentary: Present: clear, warm - Musculoskeletal Musculoskeletal: strength equal bilaterally - Psychiatric Psychiatric: appropriate mood/affect, cooperative - Neurologic Neurologic: CNII-XII intact, moves all extremities Plan Activity: advance as tolerated Diet: diabetic Additional Instructions: Advise exercise as tolerated and weight reduction. Advised to comply with meds and diet. Advised to see private cold header in 1-2 weeks. Advised 2 days work excuse on 09/13 and 09/14/19 Follow up with: PRIMARY CAREMD [Primary Care Provider] - 3-5 Days SHANELLE DEVINE MD [Staff Physician] - 7 Days Forms: Work/School Release Form Prescriptions: amLODIPine 10 mg PO DAILY #30 tablet Insulin NPH Hum/Reg Insulin Hm [Novolin 70-30 Flexpen] 38 unit SQ BID #2 insuln.pen Insulin Aspart (Nf) [Novolog Flexpen] 5 unit SQ ACHS #2 insuln.pen Lisinopril/Hydrochlorothiazide [Zestoretic 10-12.5 mg Tablet] 10 - 12.5 mg PO QDAY #30 Other Discharge Orders: Glucometer (Amb) Location: None Selected Glucometer supplies[Amb] Location: None Selected
--- NOTE | 2019-09-13 18:30 | Progress Note ---
Assessment and Plan Assessment and plan: --New-onset type 2 diabetes mellitus; Uncontrolled, Accu-Chek sliding scale coverage ADA diet Increase to 7030 Novolin 30 -35 units twice a day Diabetic education, nutrition education --HONK: Resolved Rigorous IV hydration, normal saline bolus s/p insulin drip, ADA diet Supportive care HbA1c 12.3 Case management assist at discharge --Acute Renal failure; vasomotor nephropathy, Secondary to severe dehydration Continue IV hydration, avoid nephrotoxins Trending down --Severe Dehydration; secondary to hyperglycemia IV hydration, mechanically improve --Hyperkalemia; resolved --Accelerated Hypertension: Moderate control Continue current antihypertensives, when necessary medications --Pseudohyponatremia; resolved --Hypercalcemia; secondary to severe dehydration gentle dehydration, Continue IV fluids --Obesity; BMI 36.1 Possible discharge in 1-2 days if stable History Interval history: Patient seen and examined medical records reviewed Patient is anxious to go home however blood sugars uncontrolled Adjust insulin dose Patient denies chest pain or shortness of breath Vital signs noted Hospitalist Physical - Constitutional Vitals: Temp Pulse Resp BP Pulse Ox 98.0 F 79 18 108/65 96 09/13/19 06:14 09/13/19 06:14 09/13/19 06:14 09/13/19 06:14 09/13/19 06:14 General appearance: Present: no acute distress, well-nourished, obese - EENT Eyes: Present: PERRL, EOM intact - Neck Neck: Present: supple, normal ROM - Respiratory Respiratory effort: normal Respiratory: bilateral: diminished, negative: rales, rhonchi, wheezing - Cardiovascular Rhythm: regular Heart Sounds: Present: S1 & S2 - Extremities Extremities: no ischemia, No edema - Abdominal General gastrointestinal: soft, non-tender, non-distended, normal bowel sounds - Integumentary Integumentary: Present: clear, warm - Psychiatric Psychiatric: appropriate mood/affect, cooperative - Neurologic Neurologic: CNII-XII intact, moves all extremities Results - Labs CBC & Chem 7: 09/11/19 05:21 09/11/19 05:21 Labs: Laboratory Last Values WBC 5.5 K/mm3 (4.5-11.0) 09/11/19 05:21 RBC 5.59 M/mm3 (3.65-5.03) H 09/11/19 05:21 Hgb 14.8 gm/dl (11.8-15.2) 09/11/19 05:21 Hct 45.2 % (35.5-45.6) D 09/11/19 05:21 MCV 81 fl (84-94) L 09/11/19 05:21 MCH 27 pg (28-32) L 09/11/19 05:21 MCHC 33 % (32-34) 09/11/19 05:21 RDW 14.9 % (13.2-15.2) 09/11/19 05:21 Plt Count 242 K/mm3 (140-440) 09/11/19 05:21 Lymph % (Auto) 16.2 % (13.4-35.0) 09/09/19 00:50 [place] % (Auto) 10.3 % (0.0-7.3) H 09/09/19 00:50 Eos % (Auto) 0.2 % (0.0-4.3) 09/09/19 00:50 Baso % (Auto) Elevator Constructor Helper 09/11/19 05:21 Lymph # 1.1 K/mm3 (1.2-5.4) L 09/09/19 00:50 [place] # 0.7 K/mm3 (0.0-0.8) 09/09/19 00:50 Eos # 0.0 K/mm3 (0.0-0.4) 09/09/19 00:50 Baso # 0.0 K/mm3 (0.0-0.1) 09/09/19 00:50 Add Manual Diff Complete 09/11/19 05:21 Total Counted 100 09/11/19 05:21 Seg Neutrophils % 72.9 % (40.0-70.0) H 09/09/19 00:50 Seg Neuts % (Manual) 57.0 % (40.0-70.0) 09/11/19 05:21 Band Neutrophils % 0 % 09/11/19 05:21 Lymphocytes % (Manual) 31.0 % (13.4-35.0) 09/11/19 05:21 Reactive Lymphs % (Man) 0 % 09/11/19 05:21 Monocytes % (Manual) 7.0 % (0.0-7.3) 09/11/19 05:21 Eosinophils % (Manual) 3.0 % (0.0-4.3) 09/11/19 05:21 Basophils % (Manual) 2.0 % (0.0-1.8) H 09/11/19 05:21 Metamyelocytes % 0 % 09/11/19 05:21 Myelocytes % 0 % 09/11/19 05:21 Promyelocytes % 0 % 09/11/19 05:21 Blast Cells % 0 % 09/11/19 05:21 Nucleated RBC % Not Reportable 09/11/19 05:21 Seg Neutrophils # 4.9 K/mm3 (1.8-7.7) 09/09/19 00:50 Seg Neutrophils # Man 3.1 K/mm3 (1.8-7.7) 09/11/19 05:21 Band Neutrophils # 0.0 K/mm3 09/11/19 05:21 Lymphocytes # (Manual) 1.7 K/mm3 (1.2-5.4) 09/11/19 05:21 Abs React Lymphs (Man) 0.0 K/mm3 09/11/19 05:21 Monocytes # (Manual) 0.4 K/mm3 (0.0-0.8) 09/11/19 05:21 Eosinophils # (Manual) 0.2 K/mm3 (0.0-0.4) 09/11/19 05:21 Basophils # (Manual) 0.1 K/mm3 (0.0-0.1) 09/11/19 05:21 Metamyelocytes # 0.0 K/mm3 09/11/19 05:21 Myelocytes # 0.0 K/mm3 09/11/19 05:21 Promyelocytes # 0.0 K/mm3 09/11/19 05:21 Blast Cells # 0.0 K/mm3 09/11/19 05:21 WBC Morphology Not Reportable 09/11/19 05:21 Hypersegmented Neuts Not Reportable 09/11/19 05:21 Hyposegmented Neuts Not Reportable 09/11/19 05:21 Hypogranular Neuts Not Reportable 09/11/19 05:21 Smudge Cells Not Reportable 09/11/19 05:21 Toxic Granulation Not Reportable 09/11/19 05:21 Toxic Vacuolation Not Reportable 09/11/19 05:21 Dohle Bodies Not Reportable 09/11/19 05:21 Pelger-Huet Anomaly Not Reportable 09/11/19 05:21 Rosalva Rods Not Reportable 09/11/19 05:21 Platelet Estimate Consistent w auto 09/11/19 05:21 Clumped Platelets Not Reportable 09/11/19 05:21 Plt Clumps, EDTA Not Reportable 09/11/19 05:21 Large Platelets Few 09/11/19 05:21 Giant Platelets Not Reportable 09/11/19 05:21 Platelet Satelliting Not Reportable 09/11/19 05:21 Plt Morphology Comment Not Reportable 09/11/19 05:21 RBC Morphology Normal 09/11/19 05:21 Dimorphic RBCs Not Reportable 09/11/19 05:21 Polychromasia Not Reportable 09/11/19 05:21 Hypochromasia Not Reportable 09/11/19 05:21 Poikilocytosis Not Reportable 09/11/19 05:21 Anisocytosis Not Reportable 09/11/19 05:21 Microcytosis Not Reportable 09/11/19 05:21 Macrocytosis Not Reportable 09/11/19 05:21 Spherocytes Not Reportable 09/11/19 05:21 Pappenheimer Bodies Not Reportable 09/11/19 05:21 Sickle Cells Not Reportable 09/11/19 05:21 Target Cells Not Reportable 09/11/19 05:21 Tear Drop Cells Not Reportable 09/11/19 05:21 Ovalocytes Not Reportable 09/11/19 05:21 Helmet Cells Not Reportable 09/11/19 05:21 Galaviz-Dolton Bodies Not Reportable 09/11/19 05:21 Concepcion Rings Not Reportable 09/11/19 05:21 [place] Cells Not Reportable 09/11/19 05:21 Bite Cells Not Reportable 09/11/19 05:21 Crenated Cell Not Reportable 09/11/19 05:21 Elliptocytes Not Reportable 09/11/19 05:21 Acanthocytes (Spur) Not Reportable 09/11/19 05:21 Rouleaux Not Reportable 09/11/19 05:21 Hemoglobin C Crystals Not Reportable 09/11/19 05:21 Schistocytes Not Reportable 09/11/19 05:21 Malaria parasites Not Reportable 09/11/19 05:21 Travis Bodies Not Reportable 09/11/19 05:21 Hem Pathologist Commnt No 09/11/19 05:21 VBG pH 7.353 (7.320-7.420) 09/09/19 00:50 Sodium 141 mmol/L (137-145) 09/11/19 05:21 Potassium 3.9 mmol/L (3.6-5.0) 09/11/19 05:21 Chloride 102.6 mmol/L (98-107) 09/11/19 05:21 Carbon Dioxide 23 mmol/L (22-30) 09/11/19 05:21 Anion Gap 19 mmol/L 09/11/19 05:21 BUN 15 mg/dL (9-20) 09/11/19 05:21 Creatinine 1.6 mg/dL (0.8-1.5) H 09/11/19 05:21 Estimated GFR 48 ml/min 09/11/19 05:21 BUN/Creatinine Ratio 9 % 09/11/19 05:21 Glucose 230 mg/dL (75-100) H 09/11/19 05:21 POC Glucose 230 (70-105) H 09/13/19 11:56 Hemoglobin A1c 12.3 % (4-6) H 09/09/19 04:12 Calcium 8.8 mg/dL (8.4-10.2) 09/11/19 05:21 Phosphorus 3.80 mg/dL (2.5-4.5) D 09/10/19 08:15 Magnesium 2.10 mg/dL (1.7-2.3) 09/10/19 08:15 Total Bilirubin 0.50 mg/dL (0.1-1.2) 09/10/19 08:15 Direct Bilirubin < 0.2 mg/dL (0-0.2) 09/10/19 08:15 Indirect Bilirubin 0.3 mg/dL 09/10/19 08:15 AST 30 units/L (5-40) 09/10/19 08:15 ALT 25 units/L (7-56) 09/10/19 08:15 Alkaline Phosphatase 119 units/L (35-129) 09/10/19 08:15 Total Protein 7.5 g/dL (6.3-8.2) 09/10/19 08:15 Albumin 3.6 g/dL (3.9-5) L 09/10/19 08:15 Albumin/Globulin Ratio 0.9 % 09/10/19 08:15 Urine Color Colorless (Yellow) 09/09/19 Unknown Urine Turbidity Clear (Clear) 09/09/19 Unknown Urine pH 6.0 (5.0-7.0) 09/09/19 Unknown Ur Specific [place] 1.022 (1.003-1.030) 09/09/19 Unknown Urine Protein 30 mg/dl mg/dL (Negative) 09/09/19 Unknown Urine Glucose (UA) >=500 mg/dL (Negative) 09/09/19 Unknown Urine Ketones Neg mg/dL (Negative) 09/09/19 Unknown Urine Blood Neg (Negative) 09/09/19 Unknown Urine Nitrite Neg (Negative) 09/09/19 Unknown Urine Bilirubin Neg (Negative) 09/09/19 Unknown Urine Urobilinogen < 2.0 mg/dL (<2.0) 09/09/19 Unknown Ur Leukocyte Esterase Neg (Negative) 09/09/19 Unknown Urine WBC (Auto) < 1.0 /HPF (0.0-6.0) 09/09/19 Unknown Urine RBC (Auto) < 1.0 /HPF (0.0-6.0) 09/09/19 Unknown Nutrition/Malnutrition Assess - Dietary Evaluation Nutrition/Malnutrition Findings: Nutrition Notes Start: 09/12/19 11:35 Freq: Status: Discharge Protocol: Document 09/12/19 11:35 LP (Rec: 09/12/19 11:45 LP [id number]) Nutrition Notes Need for Assessment generated from: MD Order,Education Initial or Follow up Brief Note Current Diagnosis Acute Kidney Injury,Diabetes, Hypertension Labs/Tests A1c 12.3 Subjective/Other Information Called by case management to educate pt on new DM. 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 Pt states drinking maria aid and tea mostly. Pt states eating fast food and fried food frequently. Minimum of two criteria No Interpretation of Weight Loss (non- 1-2% in 1 week severe) #1 Nutrition Diagnosis Food and nutrition-related knowledge deficit Etiology new DM As Evidenced by Signs and Symptoms A1c 12.3 Nutrition Intervention Teaching Recipient Patient,Family Learning Readiness Good Teaching Methods Discussion,Handout Response to Teaching Verbalize understanding Education Handouts Provided Consistent CHO diet Barriers to Learning No Barriers RD phone number provided Yes Patient aware of follow up options Yes Revisit per MD consult or patient Sign Off request:
== END 2019-09-13 14:04 | disposition home or self-care (01) | DRG 637 ==
LOC: ED 23:57 → 4A 09-09 03:08 → CC1 09-09 03:33 → 3A 09-10 18:01
PROVIDERS: ADMIT Internal Medicine; ATTEND Internal Medicine
DX: E11.00 Type 2 diabetes mellitus with hyperosmolarity without nonketotic hyperglycemic-hyperosmolar coma (NKHHC) (principal); N17.0 Acute kidney failure with tubular necrosis; E87.1 Hypo-osmolality and hyponatremia; E87.5 Hyperkalemia; R63.1 Polydipsia; I10 Essential (primary) hypertension; E86.0 Dehydration; E83.52 Hypercalcemia; E66.9 Obesity, unspecified; Z68.39 Body mass index [BMI] 39.0-39.9, adult; Z71.3 Dietary counseling and surveillance; D75.1 Secondary polycythemia; Z82.49 Family history of ischemic heart disease and other diseases of the circulatory system
CPT/HCPCS: 36415; 76770; 80048; 80053; 80076; 81001; 82805; 82962; 83036; 83735; 84100; 85007; 85025; 93005; 93010; 96365; 96375; G0378; J1650; J1815; J7030